=== PATIENT | female | born 1970 | race Caucasian/White ===

== ENCOUNTER → 2020-11-18 16:48 | Outpatient (CLI) | payer OTHER, SELFPAY | PROVIDERS: PCP Family Medicine; Referring Provider Family Medicine; Visit Provider Family Medicine | DX: Z20.822 Contact with and (suspected) exposure to COVID-19 (principal) | CPT/HCPCS: 87635; U0005; U0003 ==

== ENCOUNTER → 2020-11-24 | Outpatient (CLI) | payer OTHER, SELFPAY | END | disposition home or self-care (01) | PROVIDERS: PCP Family Medicine; Referring Provider Family Medicine; Visit Provider Family Medicine | DX: Z20.822 Contact with and (suspected) exposure to COVID-19 (principal) | CPT/HCPCS: 87635; U0005; U0003 ==

== ENCOUNTER 2021-03-14 08:11 | Outpatient (CLI) | payer OTHER, SELFPAY ==
[2021-03-14 10:08] LABS: Absolute Lymphocyte Count 1.27 X10^3/uL (0.83-4.51); Absolute Neutrophil Count 2.4 X10^3/uL (2.0-7.7); Basophil# 0.02 X10^3/uL; Basophil% 0.5 % (0-1); Eosinophil# 0.14 X10^3/uL; Eosinophils% 3.3 % (0-5); Hematocrit 40.4 % (37-47); Hemoglobin 13.4 g/dL (12.0-15.0); Lymphocyte # 1.27 X10^3/ul (0.83-4.51); Lymphocyte % 30.2 % (19-41); Mean Corp Hgb Conc 33.2 g/dL (32-36); Mean Corpuscular Hgb 31.2 pg (27.0-32.0); Mean Platelet Vol. 9.4 fl (6.2-12.0); Monocyte# 0.33 X10^3/uL; Monocyte% 7.8 % (0-10); NRBC Flagged by Analyzer 0 % (0-5); Neutrophil # 2.44 X10^3/uL (2.7-7.7); Platelet Count 343 K/mm3 (150-450); RBC Distribution Width CV 13.5 % (11.6-14.6); RBC Distribution Width SD 46.6 fl (35.1-43.9); White Blood Count 4.2 K/mm3 (4.4-11.0)
[2021-03-14 10:24] LABS: AST(SGOT) 20 U/L (15-37); Alanine Aminotransfer ALT/SGPT 38 U/L (13-56); Albumin, Serum 3.7 g/dL (3.2-5.0); Alkaline Phosphatase 94 U/L (45-117); Anion Gap 5 (5-15); BUN 9 mg/dL (7-18); BUN/Creat Ratio 9.3 RATIO (10-20); Calcium,Total 8.9 mg/dL (8.5-10.1); Chloride 107 mmol/L (98-107); Cholesterol 216 mg/dL (200); Creatinine, Serum 0.97 mg/dL (0.55-1.02); EST Glomerular Filtration Rate 65 mL/min (>60); Est Glom Filt Rate - Afr Amer 79 mL/min (>60); Globulin 3.8 g/dL (2.2-4.2); Glucose 111 mg/dL (74-106); High Density Lipoprotein 81 mg/dL; Protein, Total 7.5 g/dL (6.4-8.2); Sodium Level 139 mmol/L (136-145); Triglycerides 175 mg/dL; Very Low Density Lipoprotein 35 mg/dL (5-40)
== END 2021-03-14 23:59 | disposition home or self-care (01) ==
PROVIDERS: PCP Family Medicine; Referring Provider Nurse Practitioner Family; Visit Provider Nurse Practitioner Family
DX: R73.01 Impaired fasting glucose (principal); Z13.220 Encounter for screening for lipoid disorders
CPT/HCPCS: 36415; 80053; 80061; 85025

== ENCOUNTER 2021-03-31 11:14 | Outpatient (CLI) | payer OTHER, SELFPAY ==
[2021-03-31 16:00] LABS: Hemoglobin A1c 5.3 % (3.8-5.6)
[2021-04-06 13:56] LABS: HPV APTIMA, High Risk Negative (Negative)
[2021-04-06 14:29] LABS: HPV Reflexed? YES, CHARGE PATIENT
== END 2021-03-31 23:59 | disposition home or self-care (01) ==
LOC: MFPLAB 11:14
PROVIDERS: Nurse Practitioner Family; PCP Family Medicine; Referring Provider Family Medicine; Visit Provider Family Medicine
DX: Z12.4 Encounter for screening for malignant neoplasm of cervix (principal)
CPT/HCPCS: 36415; 83036; 87624; 88175; G0145

== ENCOUNTER 2023-02-14 09:15 | Emergency (ER) | payer OTHER, SELFPAY ==
[2023-02-14 09:16] VITALS: BP 137/92; PULSE 103; RESP 18; TEMP 36.3; O2SAT 99; BMI 24.3
--- NOTE | 2023-02-14 11:19 | EDS_ITS ---
HPI History of Present Illness Chief Complaint: Back Detail of Chief Complaint: Back pain Informant: patient Narrative Narrative: Patient presents to the emergency department complaint of low back pain. Patient states that she was in the kitchen 2 days ago mopping the floor when she slipped and was able to catch herself on a chair. She has had pain since that time. She describes pain radiating towards the right hip. She chronically has some numbness and tingling in the left leg. She has history of chronic back pain. She had a lumbar laminectomy and discectomy about 9 years ago in [place]. She is also had a cervical fusion. She denies weakness of extremities or change in bowel or bladder function. [facility] Medical History (Updated 02/14/23 @ 12:[address] Lilian Rajan, ) Chronic back pain Home Medications cyclobenzaprine 10 mg tablet 10 mg PO TID PRN Muscle Spasm #20 TABLETS 02/14/23 [Rx Last Taken Unknown] hydrocodone-acetaminophen 5-325mg 5mg-325mg 1 tab PO Q4H PRN PRN Pain 2 days #15 TABLETS 02/14/23 [Rx Last Taken Unknown] naproxen 500 mg tablet (Naprosyn) 500 mg PO BID PRN pain #20 tabs 02/14/23 [Rx Last Taken Unknown] venlafaxine 37.5 mg capsule,extended release 24 hr 37.5 mg PO DAILY 02/14/23 [History Last Taken Unknown] Allergy/AdvReac Type Severity Reaction Status Date / Time Iodinated Contrast Media Allergy Anaphylaxis Verified 02/14/23 11:08 Surgical History (Updated 02/14/23 @ 11:08 by Carol Schofield) H/O spinal fusion History of laminectomy Social History Smoking Status: Never smoker ROS ROS ED Review of Systems ROS Unobtainable: other Constitutional Constitutional ED: Reports lethargy; Denies chills, fever(s), sweats or weight loss Eyes Eyes: Denies blurry vision, change in vision or diplopia ENT ENT ED: Denies rhinorrhea or sore throat Cardiovascular Cardiovascular: Denies chest pain, orthopnea or racing heartbeat Respiratory/Chest Respiratory/Chest: Denies cough, dyspnea, dyspnea on exertion, orthopnea or sputum Gastrointestinal Gastrointestinal: Denies abdominal pain, diarrhea, nausea or vomiting Genitourinary Genitourinary ED: Denies dysuria, hematuria or urinary frequency Musculoskeletal Musculoskeletal: Reports back pain; Denies arthralgias, myalgias or neck pain Integumentary Denies abscess, Abrasions or rash Neurologic Neurologic: Denies headache(s) or weakness Psychiatric Psychiatric: Denies anxiety, depression or suicidal thoughts Endocrine Endocrinology: Denies polydipsia, polyphagia or polyuria Hematologic/Lymphatic Hematologic/Lymphatic: Denies easy bleeding, easy bruising or lymphadenopathy Allergic/Immunologic Allergic/Immunologic ED: Denies mouth swelling, tongue swelling or urticaria EXAM Physical Exam Const Vital Signs: 02/14/23 09:16 Temperature 97.4 F L Temperature Source Temporal Pulse Rate 103 H Respiratory Rate 18 Blood Pressure 137/92 H Blood Pressure Mean 107 Pulse Ox 99 Oxygen Delivery Method Room Air Positive well nourished and well developed General Appearance ED: well developed and NAD HEENT Reports TM's clear and moist mucous membranes normocephalic and atraumatic; Negative for trauma or tenderness Tympanic Membrane ED: Yes TM's clear Eyes PERRL and EOMs intact bilaterally General Eye ED: Negative for pale conjunctiva or scleral icterus Neck no lymphadenopathy, supple and no JVD General: Negative for tenderness Chest Wall inspection of chest normal and palpation of chest normal Chest: Negative for tenderness Resp normal respiratory effort and clear to auscultation bilaterally Effort and Inspection: Negative for respiratory distress or pain with movement Auscultation: Negative for rhonchi, wheezes or diminished lung sounds Cardio regular rate, regular rhythm, S1 normal heart sound, S2 normal heart sound and no murmurs Peripheral Pulses: pulses 2+ throughout GI normal to inspection, nondistended, normoactive bowel sounds, soft to palpation, non-tender, non-distended and no masses Back/Spine no CVA tenderness Back/Spine Narrative: Tenderness diffusely over the lumbar spine. She also has tenderness over the right and left lumbar paraspinal musculature. She has negative straight leg raises. Deep tendon reflexes are plus 2 out of 4 bilaterally at the patella and Achilles. Patient has normal L5 extension bilaterally. Patient has normal sensation to light touch. Extremity normal to inspection General Extremety ED: Negative for edema General Extremity: Negative for edema Neuro oriented x3, CN's II-XII intact bilaterally, no sensory deficits noted and gait normal Sensorium / Orientation: awake, alert, oriented to person, oriented to place and oriented to time Motor Exam: strength 5/5 throughout and strength abnormal Psych mental status grossly normal Skin no rashes or lesions noted and no wounds MDM MDM MDM Narrative Medical decision making narrative: Patient with acute on chronic back pain. She slipped in the kitchen 2 days ago and thinks she injured her back. She has no red flag symptoms of cauda equina. Did obtain some plain x-rays 3 views of the lumbar spine which showed degenerative changes and disc space narrowing at L4-5. No fractures noted. No lytic lesions noted. Patient was medicated with Dilaudid as well as Toradol and Norflex. She had some pain improvement with that. Will refer to back specialist and will write a prescription for Naprosyn as well as Flexeril and Timpson for pain. Advised to return if change in bowel or bladder function or weakness to the extremities or saddle anesthesia or if condition should worsen anyway. I do not feel any further imaging emergent such as MRI is indicated. Radiography Diagnostic Testing: Clinical Impression(s) from Imaging Studies Lumbar Spine X-Ray 02/14/23 11:55 IMPRESSION: Degenerative changes of the lower lumbar spine as described above. Electronically Signed: Albert Higuera MD at 12:06 EST , Three-view x-rays of lumbar spine obtained interpreted by myself as no evidence of fracture or dislocation. Radiology noted degenerative changes. Discharge Plan Triage Chief Complaint: Back ED Provider: Lilian Rajan Dx/Rx/DC Orders Clinical Impression: Back pain Instructions: ED Back Pain (Acute or Chronic) Prescriptions: New cyclobenzaprine [cyclobenzaprine] 10 mg tablet 10 mg PO TID PRN (Reason: Muscle Spasm) Qty: 20 0RF hydrocodone-acetaminophen [hydrocodone-acetaminophen] 5-325 mg tablet 1 tab PO Q4H PRN PRN (Reason: Pain) 2 Days Qty: 15 0RF naproxen [Naprosyn] 500 mg tablet 500 mg PO BID PRN (Reason: pain) Qty: 20 0RF No Action venlafaxine 37.5 mg capsule,extended release 24hr 37.5 mg PO DAILY Patient Comments: TAKE 1 CAPSULE BY MOUTH EVERY DAY Primary Care Provider: Thiago Mcduffie: Johnny Morgan MD [Med Staff - Active Staff] - 3-5 Days Neftali Gautam DO [Med Staff - Active Staff] - 3-5 Days Danish Chung DO [Med Staff - Active Staff] - 3-5 Days Raj Reina MD [Med Staff - Active Staff] - Disposition Disposition: Home, Self Care Discharge Date/Time: 02/14/23 12:26
--- NOTE | 2023-02-14 11:55 | RAD_ITS ---
INDICATION: back pain EXAMINATION/TECHNIQUE: X-RAY - XR Spine Lumbar 2 or 3 Views COMPARISON: No relevant prior comparison study available FINDINGS: VERTEBRAE: Preserved vertebral body height. No fracture. Mild grade 1 anterolisthesis of L3 over L4 and L4 over L5. Preservation of the normal lumbar lordosis. Mild dextroscoliosis. DISCS: Narrowing of L4-L5 disc space. Endplate spondylosis at multiple levels. INCLUDED ABDOMEN: Included bowel gas pattern is non-obstructive. RAD/Lumbar Spine 2 or 3 Views IMPRESSION: Degenerative changes of the lower lumbar spine as described above. Electronically Signed: Albert Higuera MD at 12:06 EST ,
--- OUTSIDE RECORDS SUMMARY | 2023-02-14 12:00 | XMS RPT_ITS | CCD ---
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 Name Role Phone Holly Calderon Unavailable Unavailable Adonis Martínez Unavailable Unavailable Adonis Martínez Primary Care Provider IVANA, DR DEB James Attending Unavaila ble IVANA, DR DEB James Primary Care Unavaila ble IVANA, DR DEB James Admitting Unavaila ble IVANA, DR DEB James Attending Unavaila ble IVANA, DR DEB James Primary Care Unavaila ble IVANA, DR DEB James Admitting Unavaila ble SOZEN, SALINAS Attending Unavailable YONNY CARRILLO, DR ROBBI Botello Consulting Unavailab le YONNY CARRILLO, ~[phone] ROBBI Botello Admitting Unavailable YONNY CARRILLO, ~[phone] ROBBI Botello Attending Unavailable NONE, NONE Primary Care Unavailable YONNY CARRILLO, DR ROBBI Botello Consulting Unavailab le NONE, NONE Consulting Unavailable NONE, NONE Consulting Unavailable Allergies Allergy Classification Reported Allergen(s) Allergy Type Date of Onset Reaction(s) Facility (2 sources) Codeine; Translations: [CODEINE] Drug Allergy 08-10-2014 Vomiting [facility] (2 sources) Iodine; Translations: [IODINE] Drug Allergy 10-19-2010 Anaphylaxis [facility] (2 sources) Penicillins; Translations: [PENICILLINS] Drug Allergy 10-19-2010 Rash [facility] (2 sources) Vancomycin; Translations: [VANCOMYCIN] Drug Allergy 11-18-2014 Rash [facility] Problems Active Problems Problem Classification Problem Date Documented Date Episodic/Chronic Administrative/socia l admission (3 sources) Encounter for examination for insurance purposes; Translations: [ENCOUNTER EXAM INSURANCE PURPOSES] Onset: 11-05-2022 Episodic Esophageal disorders (1 source) Gastroesophageal reflux disease; Translations: [GERD (gastroesophageal reflux disease)] Onset: 10-20-2014 10-20-2014 Chronic Unclassified (1 source) SUMMARY Onset: 10-20-2014 10-20-2014 Unclassified (1 source) Patient encounter status; Translations: [DVT prophylaxis] Onset: 10-20-2014 10-20-2014 Past or Other Problems Problem Classification Problem Date Documented Da te Episodic/Chronic Other ear and sense organ disorders (1 source) Otalgia; Translations: [Otalgia] Onset: 06-24-2012 06-24-2012 Episodic Otitis media and related conditions (1 source) Acute otitis media; Translations: [Acute otitis media] Onset: 06-24-2012 06-24-2012 Episodic Spondylosis; intervertebral disc disorders; other back problems (1 source) Backache; Translations: [Back pain] Onset: 10-20-2014 10-20-2014 Episodic Results Test Name Value Interpretation Reference Range Facil ity Encounters Encounter Date Encounter Type Care Provider Facility Start: 11-05-2022 End: 11-06-[address] ROBBI BLANCAS DO Facility:[facility] Start: 05-18-2022 End: 05-18-2022 ambulatory KAMILLE FRITZ Facility:[facility] Start: 05-27-2020 End: 05-27-[address] DEB HEATH Kishan [facility] Start: 05-04-2020 End: 05-04-[address] DEB HEATH Kishan [facility] Start: 12-21-2016 Ambulatory Holly Calderon Fac ility:[id number] Start: 12-08-2005 End: 12-08-2005 Patient encounter procedure Yara Javier Work Phone: [facility] Start: 12-08-2005 Results Only Yara vincent Work Phone: [facility] Procedures Date Procedure Procedure Detail Performing Clinician Start: 12-03-2014 Mammography Yara ma Start: 12-08-2005 CONVERTED SURGICAL PATHOLOGY Yara Javier Work Phone: Plan of Treatment Date Care Activity Detail Author Start: 11-20-2022 Urine microalbumin profile DTAP,TDAP ,TD (2 - Td) [facility] Start: 10-07-2019 Influenza vaccination INFLUENZA (#1) [facility] Start: 11-23-2017 DIABETES SCREEN DIABETES SCREEN [facility] Start: 02-03-2017 LIPID SCREEN LIPID SCREEN [facility] Start: 12-04-2015 Mammography MAMMOGRAM [facility] Start: 10-20-2015 HPV TESTING HPV TESTING [facility] Start: 10-20-2015 PAP TESTING PAP TESTING [facility] Payers Date Payer Category Payer Unknown [id number] 1970 Unknown [id number] 1970 Unknown [id number] 1957 Self-pay Private Health Insurance [id number] Unknown [id number] Social History Date Type Detail Facility Tobacco smoking status NHIS Unknown if ev er smoked [facility] Sex Assigned At Not on file [facility] Progress note 05-18-2022 Note Date & Type Note Facility 05-18-2022 Note HNO ID: [id number] Author: Kamille Fritz MD Service: ? Author Type: Physician Type: Progress Notes Filed: 05/19/2022 10:29 AM Note Text: Alesia Shields is a 52 year old female who presents for annual visit. HPI: Pt has been seeing her periods every 3-4 months. Denies hot flushes, night sweats, admits to vaginal dryness, but manageable for the time being. C/O vaginal bleeding after intercourse. Has hx of + HPV. has hx of + genital herpes. Due for pap smear and mammogram. 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 Delatorre L/[facility] (INCOMPLETE AB), ANY TRIMESTER 2 for SAB ORTHOPEDICS SURGERY HX 08/2014 lumbar, diskectomy PICC LINE INSERT/CONSULT 10/23/2014 SINUS SURGERY PROC UNLISTED 2004 FAMILY HISTORY Problem Relation Age of Onset Heart Paternal Grandfather Hypertension Daughter Ischemic Heart Disease Son Diabetes Father Hypertension Father Hypertension Mother Social History Tobacco Use Smoking status: Never Smokeless tobacco: Never Substance Use Topics Alcohol use: No Drug use: No Current Outpatient Medications Medication Sig venlafaxine ER (EFFEXOR XR) 37.5 mg 24 hr capsule Take 37.5 mg by mouth once daily. clindamycin (CLEOCIN) 300 mg capsule Take 1 capsule by mouth three times daily. ciprofloxacin HCl (CIPRO) 500 mg tablet Take 1 tablet by mouth twice daily. multivitamin tablet Take 1 tablet by mouth once daily. oxyCODONE 10 mg tab PLEASE take as needed by mouth for pain only: 6 times daily for 5 days 4 times daily for 5 days 3 times daily for 5 days 2 times daily for 5 days Once daily for 5 days Then stop, OR seek advice of pain management physician or PCP if pain persists for proper pain management services. magnesium hydroxide (MOM) 400 mg/5 mL suspension Take 30 mL by mouth twice daily as needed for Constipation. docusate sodium (COLACE) 100 mg capsule Take 1 capsule by mouth twice daily. ondansetron (ZOFRAN, HYDROCHLORIDE,) 4 mg tablet Take 1 tablet by mouth every 8 hours as needed for Nausea/Vomiting. FOR NAUSEA omeprazole (PRILOSEC) 20 mg capsule Take 20 mg by mouth once daily. pregabalin (LYRICA) 150 mg capsule Take 150 mg by mouth twice daily. No current facility-administered medications for this visit. Allergies As of Date: 05/18/2022 Allergen Noted Reaction CONTRAST DYE [IODINE] 10/19/2010 Anaphylaxis CODEINE 08/10/2014 Vomiting PENICILLINS 10/19/2010 Rash VANCOMYCIN 11/18/2014 Rash Fully Assessed 05/18/2022 REVIEW OF SYSTEMS Abdomen: No bloating, early satiety, indigestion, or increased flatulence. No abdominal pain, nausea, vomiting, diarrhea, or constipation. Bladder: No dysuria, gross hematuria, urinary frequency, urinary urgency, or incontinence. Breast: No breast lumps, nipple d/c, overlying skin changes, redness or skin retraction. Expanded ROS: N/A Allergies and current medication updated:Yes EXAM: BP 110/80 Wt 152 lb (68.9kg) LMP 05/17/2022 GENERAL: pleasant, female in no apparent distress HEENT: Normocephalic, atraumatic, mucus membranes moist, and no lesions NECK: Supple, full range of motion, no adenopathy, and thyroid normal DERMATOLOGY: Normal, without lesions, non-icteric, and non-hirsute CHEST: Normal inspiratory effort ABDOMEN: soft, non-tender, and no masses PELVIC: external genitalia normal, normal Bartholin's glands, urethra, [place]'s glands, no vulvar lesions, no cervical lesions, good vaginal support, physiologic discharge present, normal appearing perineal body and perianal region BIMANUAL: uterus normal size, shape and consistency, no adnexal masses, and non-tender NEURO: alert and oriented x3,exam grossly non-focal EXTREMITIES: normal ASSESSMENT AND PLAN: Encounter Diagnosis ICD-10-CM 1. Breast screening Z12.39 FAISAL SCREENING W OSCAR 2. Cervical cancer screening Z12.4 PAP TEST 1- pap smear 2- mammogram 3- Vagifem for vaginal dryness if it gets worse 4- post-coital bleeding: Will watch for the time being, since cervix does not look inflamed or friable. We did discuss the possibility of cryotherapy of cervix, if bleeding after intercourse persists or gets worse in amount. I have spent 45 minutes with the patient during history taking, exam, review of chart, documentation in the chart, education, counselling and medical decision making. Stacia (more content not included)... [facility] Summary Purpose Family History No Family History Records FoundNo Family History Records FoundNo Family History Records FoundNo Family History Records FoundNo Family History Records Found Advance Directives No Advanced Directives Records FoundNo Advanced Directives Records FoundNo Advanced Directives Records FoundNo Advanced Directives Records FoundNo Advanced Directives Records Found History of Past Illness Problem Noted Date Resolved Date SUPERVIS OTHER NORMAL PREG 07/04/201212/30 Additional Source Comments INFORMATION SOURCE (unrecogn ized section and content) DATE CREATED AUTHOR AUTHOR'S ORGANIZ ATION 02/24/2020 [facility] DATE CREATED AUTHOR AUTHOR'S ORGANIZ ATION 06/03/2020 [facility] DATE CREATED AUTHOR AUTHOR'S ORGANIZ ATION 05/22/2022 [facility] DATE CREATED AUTHOR AUTHOR'S ORGANIZ ATION 11/16/2022 [facility] Source Comments (unrecognize d section and content) In the event this informatio n is protected by the Federal Confidentiality of Alcohol and Drug Abuse Patient Records regulations: The Federal rules restrict any use of the information to criminally investigate or prosecute any alcohol or drug abuse patient.[facility] FOR RECORDS PERTAINING TO PATIENTS WHO ARE OR HAVE BEEN ENROLLED IN A CHEMICAL DEPENDENCY/SUBSTANCEABUSE PROGRAM, SOME INFORMATION MAY BE OMITTED. This clinical summary was aggregated from multiple sources. Caution should be exercised in using it in the provision of clinical care. This summary normalizes information from multiple sources, and as a consequence, information in this document may materially change the coding, format and clinical context of patient data. In addition, data may be omitted in some cases. CLINICAL DECISIONS SHOULD BE BASED ON THE PRIMARY CLINICAL RECORDS. [employer] [facility]. provides no warranty or guarantee of the accuracy or completeness of information in this document.
[2023-02-14] MEDS: HYDROmorphone 1 MG/ML Syringe IM (12:02)
[2023-02-14] MEDS: Ketorolac 30 MG/ML Syringe IM (12:03)
[2023-02-14] MEDS: Orphenadrine 60 MG/2 ML Ampul IM (12:03)
== END 2023-02-14 12:26 | disposition home or self-care (01) ==
PROVIDERS: Emergency Provider Emergency Medicine; PCP Family Medicine; Visit Provider Emergency Medicine
DX: M54.9 Dorsalgia, unspecified (principal); M51.36 Other intervertebral disc degeneration, lumbar region; G89.29 Other chronic pain
CPT/HCPCS: 72100; 99283

== ENCOUNTER → 2024-11-18 | Outpatient (CLI) | payer OTHER, SELFPAY ==
--- NOTE | 2024-11-18 08:52 | RAD_ITS ---
PROCEDURE: CHEST PA AND LATERAL; RIBS BILAT 3V NO CXR 11/18/2024 REASON FOR EXAM: RIB PAIN; INJURY OF RIB TECHNIQUE: Procedure Code: RADCXR; [id number] Modality: DX Procedure: CHEST PA AND LATERAL; RIBS BILAT 3V NO CXR AP and lateral chest radiographs including bilateral views of both ribs. COMPARISON: None FINDINGS: Hardware: Cervical fusion hardware present. Heart: The heart size is normal. Mediastinum: The mediastinal contour is unremarkable. Lungs: The lungs are clear. Nonspecific moderate left lung base elevation. Bones: No acute displaced rib fracture is identified. RAD/Ribs Bilat 3V No CXR IMPRESSION: 1. No acute cardiopulmonary process. 2. No radiographic evidence of acute displaced rib fracture. If focal pain pe rsists consider follow-up with CT chest without contrast. Reading [facility]
--- NOTE | 2024-11-18 08:52 | RAD_ITS ---
PROCEDURE: CHEST PA AND LATERAL; RIBS BILAT 3V NO CXR 11/18/2024 REASON FOR EXAM: RIB PAIN; INJURY OF RIB TECHNIQUE: Procedure Code: RADCXR; [id number] Modality: DX Procedure: CHEST PA AND LATERAL; RIBS BILAT 3V NO CXR AP and lateral chest radiographs including bilateral views of both ribs. COMPARISON: None FINDINGS: Hardware: Cervical fusion hardware present. Heart: The heart size is normal. Mediastinum: The mediastinal contour is unremarkable. Lungs: The lungs are clear. Nonspecific moderate left lung base elevation. Bones: No acute displaced rib fracture is identified. RAD/Ribs Bilat 3V No CXR IMPRESSION: 1. No acute cardiopulmonary process. 2. No radiographic evidence of acute displaced rib fracture. If focal pain pe rsists consider follow-up with CT chest without contrast. Reading Location[facility]
--- NOTE | 2024-11-18 09:00 | RAD_ITS ---
PROCEDURE: CHEST PA AND LATERAL; RIBS BILAT 3V NO CXR 11/18/2024 REASON FOR EXAM: RIB PAIN; INJURY OF RIB TECHNIQUE: Procedure Code: RADCXR; [id number] Modality: DX Procedure: CHEST PA AND LATERAL; RIBS BILAT 3V NO CXR AP and lateral chest radiographs including bilateral views of both ribs. COMPARISON: None FINDINGS: Hardware: Cervical fusion hardware present. Heart: The heart size is normal. Mediastinum: The mediastinal contour is unremarkable. Lungs: The lungs are clear. Nonspecific moderate left lung base elevation. Bones: No acute displaced rib fracture is identified. RAD/Chest PA and Lateral IMPRESSION: 1. No acute cardiopulmonary process. 2. No radiographic evidence of acute displaced rib fracture. If focal pain pe rsists consider follow-up with CT chest without contrast. Reading Location[facility]
--- NOTE | 2024-11-18 09:00 | RAD_ITS ---
PROCEDURE: CHEST PA AND LATERAL; RIBS BILAT 3V NO CXR 11/18/2024 REASON FOR EXAM: RIB PAIN; INJURY OF RIB TECHNIQUE: Procedure Code: RADCXR; [id number] Modality: DX Procedure: CHEST PA AND LATERAL; RIBS BILAT 3V NO CXR AP and lateral chest radiographs including bilateral views of both ribs. COMPARISON: None FINDINGS: Hardware: Cervical fusion hardware present. Heart: The heart size is normal. Mediastinum: The mediastinal contour is unremarkable. Lungs: The lungs are clear. Nonspecific moderate left lung base elevation. Bones: No acute displaced rib fracture is identified. RAD/Chest PA and Lateral IMPRESSION: 1. No acute cardiopulmonary process. 2. No radiographic evidence of acute displaced rib fracture. If focal pain pe rsists consider follow-up with CT chest without contrast. Reading Location[facility]
== END | disposition home or self-care (01) ==
LOC: MTRAD 08:51
PROVIDERS: PCP Family Medicine; Referring Provider Family Medicine; Visit Provider Family Medicine
DX: S29.9XXA Unspecified injury of thorax, initial encounter (principal)
CPT/HCPCS: 71046; 71110

== ENCOUNTER → 2024-11-21 | Outpatient (CLI) | payer OTHER, SELFPAY ==
[2024-11-21 10:16] LABS: Hematocrit 39.0 % (37-47); Hemoglobin 12.7 g/dL (12.0-15.0); Mean Corp Hgb Conc 32.6 g/dL (32-36); Mean Corpuscular Volume 95.6 fL (81-99); Mean Platelet Vol. 9.2 fl (6.2-12.0); Platelet Count 364 K/mm3 (150-450); RBC Distribution Width CV 13.2 % (11.6-14.6); RBC Distribution Width SD 46.4 fl (35.1-43.9); Red Blood Count 4.08 M/mm3 (4.2-5.4); White Blood Count 4.7 K/mm3 (4.4-11.0)
[2024-11-21 10:45] LABS: AST(SGOT) 24 U/L (<=31); Alanine Aminotransfer ALT/SGPT 33 U/L (<=34); Albumin, Serum 4.5 g/dL (3.5-5.0); Alkaline Phosphatase 85 U/L (35-104); Anion Gap 9 (5-15); BUN 10 mg/dL (4-19); BUN/Creat Ratio 13.2 RATIO (10-20); Calcium,Total 9.5 mg/dL (7.6-11.0); Carbon Dioxide 27.3 mmol/L (21.0-32.0); Chloride 101 mmol/L (98-108); Cholesterol 195 mg/dL (<=200); Globulin 2.8 g/dL (2.2-4.2); Glucose 99 mg/dL (70-99); Low Density Lipoprotein Calc. 79 mg/dL; Potassium 4.2 mmol/L (3.3-5.1); Triglycerides 68 mg/dL; Very Low Density Lipoprotein 14 mg/dL (5-40); cholesterol:hdl ratio screen 1.91
== END | disposition home or self-care (01) ==
LOC: MFPLAB 09:01
PROVIDERS: PCP Family Medicine; Visit Provider Family Medicine
DX: Z13.228 Encounter for screening for other metabolic disorders (principal); R73.01 Impaired fasting glucose; R74.01 Elevation of levels of liver transaminase levels; E78.5 Hyperlipidemia, unspecified; Z13.29 Encounter for screening for other suspected endocrine disorder
CPT/HCPCS: 36415; 80053; 80061; 83036; 84443; 85027

== ENCOUNTER → 2025-01-05 | Outpatient (CLI) | payer OTHER, SELFPAY ==
--- OUTSIDE RECORDS SUMMARY | 2025-01-05 19:57 | XMS RPT_ITS | CCD ---
Author Organization [facility] Inform ion Partnership [facility] Care Team Providers Care Supervisor [employer] Name Role Phone Erika Calderon Unavailable Unavailable Adonis Martínez Unavailable Unavailable Adonis Martínez Primary Care Provider IVANA, DR LADARIUS James Attending Unavaila ble IVANA, DR LADARIUS James Primary Care Unavaila ble IVANA, DR LADARIUS James Admitting Unavaila ble IVANA, DR LADARIUS James Attending Unavaila ble IVANA, DR LADARIUS James Primary Care Unavaila ble IVANA, DR LADARIUS James Admitting Unavaila ble Adonis Martínez MD Primary Care Provider SUNNY BALLESTEROS Referring Unavailable ADONIS MARTÍNEZ Primary Care Unavailable SUNNY BALLESTEROS Referring Unavailable ADONIS MARTÍNEZ Primary Care Unavailable SUNNY BALLESTEROS Attending Unavailable ADONIS MARTÍNEZ Primary Care Unavailable SUNNY BALLESTEROS Attending Unavailable ADONIS MARTÍNEZ Primary Care Unavailable Unavailable Primary Care Provider UnavailALISSA Roberto Attending Unavailable NONE, NONE Primary Care Unavailable DR SHANNAN THOMPSON DO Consulting Unavailab kt THOMPSON DO, ~[phone] SHANNAN Botello Attending Unavailable YONNY CARRILLO DR~[phone] SHANNAN Botello Admitting Unavailable DR SHANNAN THOMPSON DO Consulting Unavailab le NONE, NONE Consulting Unavailable NURSEREFERRAL, NURSEREFERRAL Consulting Ann vailable NONE, NONE Primary Care Unavailable PAULA DENG, ~[phone] TROY Harrison Attending Unavailable PAULA DENG, ~[phone] TROY Harrison Admitting Unavailable ADELA FUCHS CRNA Consulting Unavailab le ADELA FUCHS CRNA Consulting Unavailab kt ALEJANDRE MD, ANTON Fitzpatrick Consulting Unavailable ANTON ALEJANDRE MD Consulting Unavailable PAULA DENG, DR TROY Harrison Consulting Unavaila ble PAULA DENG, DR TROY Harrison Consulting Unavaila ble NONE, NONE Consulting Unavailable NONE, NONE Consulting Unavailable YONNY CARRILLO, ~[phone] SHANNAN Botello Attending Unavailable YONNY CARRILLO, ~[phone] SHANNAN Botello Admitting Unavailable YONNY CARRILLO, DR SHANNAN Botello Consulting Unavailab le NONE, NONE Primary Care Unavailable YONNY CARRILLO, DR SHANNAN Botello Consulting Unavailab le NONE, NONE Consulting Unavailable NONE, NONE Consulting Unavailable SilverabrSachin connell Attending Unavailable Froy, Chalon Referring Unavailable Froy, Chalon Primary Care Unavailable Froy, Chalon Primary Care Unavailable Sarahi Rudd Attending Unavailable Calabretta, Sachin Attending Unavailable Froy, Chalon Referring Unavailable Froy, Chalon Primary Care Unavailable Fifi Aguirre Attending Unavailable Froy, Chalon Referring Unavailable Froy, Chalon Primary Care Unavailable Froy, Chalon Primary Care Unavailable Calabretta, Sachin Attending Unavailable Calabretta, Sachin Attending Unavailable Froy, Chalon Primary Care Unavailable Froy, Chalon Attending Unavailable Froy, Chalon Referring Unavailable Froy, Chalon Primary Care Unavailable Froy, Chalon Attending Unavailable Froy, Chalon Primary Care Unavailable Allergies Allergy Classification Reported Allergen(s) Allergy Type Date of Onset Reaction(s) Facility (3 sources) Codeine; Translations: [CODEINE] Drug Allergy 5 Vomiting [facility] (3 sources) Iodine; Translations: [IODINE] Drug Allergy 1 Anaphylaxis [facility] (3 sources) Penicillins; Translations: [PENICILLINS] Drug Allergy 1 [facility] (3 sources) Vancomycin; Translations: [VANCOMYCIN] Drug Allergy 5 [facility] (7 sources) Iodinated Contrast Media; Translations: [IODINATED CONTRAST MEDIA] Drug Allergy 5 Anaphylaxis, Other [facility] (1 source) Iodine (And Iodine Containting Drugs) Drug allergy (disorder) [facility] (1 source) Iodinated Contrast Media Drug allergy (disorder) 5 [facility] Medications Current Medications Medication Drug Class(es) Dates Sig (Normalized) Sig (Original) ciprofloxacin 500 mg oral tablet (1 source) Quinolone Antimicrobial Start: 12-02-2014 take 1 tablet by mouth twice daily ciprofloxacin HCl (CIPRO) 500 mg tablet Take 1 tablet by mouth twice daily. 60 tablet 5 12/02/2014 Active clindamycin 300 mg oral capsule (1 source) Lincosamide Antibacterial Start: 12-02-2014 take 1 capsule by mouth three times daily clindamycin (CLEOCIN) 300 mg capsule Take 1 capsule by mouth three times daily. 90 capsule 5 12/02/2014 Active docusate sodium 100 mg oral capsule (1 source) Start: 10-24-2014 take 1 capsule by mouth twice daily docusate sodium (COLACE) 100 mg capsule Take 1 capsule by mouth twice daily. 60 capsule 3 10/24/2014 Active magnesium hydroxide 80 mg/ml oral suspension (1 source) Start: 10-24-2014 take 30 mL by mouth every twelve hours as needed magnesium hydroxide (MOM) 400 mg/5 mL suspension Take 30 mL by mouth twice daily as needed for Constipation. 100 mL 3 10/24/2014 Active multivitamin tablet (1 source) Start: 11-30-2014 take 1 tablet by mouth once daily multivitamin tablet Take 1 tablet by mouth once daily. 0 11/30/2014 Active omeprazole 20 mg delayed release oral capsule (1 source) Proton Pump Inhibitor take 1 capsule by mouth once daily omeprazole (PRILOSEC) 20 mg capsule Take 20 mg by mouth once daily. Active ondansetron 4 mg oral tablet (1 source) Serotonin-3 Receptor Antagonist Start: 10-24-2014 take 1 tablet by mouth every eight hours as needed ondansetron (ZOFRAN, HYDROCHLORIDE,) 4 mg tablet Take 1 tablet by mouth every 8 hours as needed for Nausea/Vomiting. FOR NAUSEA 30 tablet 0 10/24/2014 Active oxyCODONE hydrochloride 10 mg oral tablet (1 source) Opioid Agonist Start: 10-24-2014 oxyCODONE 10 mg tab PLEASE take as needed by mouth for pain only: 6 times daily for 5 days 4 times daily for 5 days 3 times daily for 5 days 2 times daily for 5 days Once daily for 5 days Then stop, OR seek advice of pain management physician or PCP if pain persists for proper pain management services. 90 tablet 0 10/24/2014 Active pregabalin 150 mg oral capsule (1 source) take 1 capsule by mouth twice daily pregabalin (LYRICA) 150 mg capsule Take 150 mg by mouth twice daily. Active 24 hr venlafaxine 37.5 mg extended release oral capsule (6 sources) Serotonin and Norepinephrine Reuptake Inhibitor Start: 05-03-2022 take 1 capsule by mouth once daily venlafaxine ER (EFFEXOR XR) 37.5 mg 24 hr capsule Take 37.5 mg by mouth once daily. 05/03/2022 Active Problems Active Problems Problem Classification Problem Date Documented Date Episodic/Chronic Administrative/socia l admission (3 sources) Encounter for examination for insurance purposes; Translations: [ENCOUNTER EXAM INSURANCE PURPOSES] Onset: 10-19-2024 Episodic Esophageal disorders (3 sources) Gastroesophageal reflux disease; Translations: [Gastro-esophageal reflux disease without esophagitis] Onset: 10-20-2014 10-20-2014 Chronic Gastritis and duodenitis (1 source) Unspecified chronic gastritis without bleeding; Translations: [UNS CHRONIC GASTRITIS W/O BLEEDING] Onset: 08-20-2024 Chronic Other and unspecified benign neoplasm (1 source) History of polyp of colon; Translations: [Personal history of colonic polyps] 10-22-2023 Episodic Other injuries and conditions due to external causes (1 source) Unspecified injury of thorax, initial encounter; Translations: [Unspecified injury of thorax, initial encounter] Onset: 12-04-2024 Episodic Other screening for suspected conditions (not mental disorders or infectious disease) (6 sources) Patient encounter status; Translations: [Encounter for screening for malignant neoplasm of colon] Onset: 05-14-2024 10-22-2023 Episodic Unclassified (2 sources) SUMMARY Onset: 10-20-2014 10-20-2014 Unclassified (1 source) Patient encounter status; Translations: [DVT prophylaxis] Onset: 10-20-2014 10-20-2014 Unclassified (1 source) Drug therapy finding; Translations: [DVT prophylaxis] Onset: 10-20-2014 01-31-2021 Unclassified (1 source) ESOPHAGITIS UNSPEC WITHOUT BLEEDING; Translations: [ESOPHAGITIS UNSPEC WITHOUT BLEEDING] Onset: 08-20-2024 Past or Other Problems Problem Classification Problem Date Documented Da te Episodic/Chronic Other ear and sense organ disorders (1 source) Otalgia; Translations: [Otalgia] Onset: 06-24-2012 06-24-2012 Episodic Other ear and sense organ disorders (1 source) Pain of ear structure; Translations: [Otalgia, unspecified ear] Onset: 06-24-2012 06-24-2012 Episodic Other and delivery including normal (1 source) Normal ; Translations: [Encounter for supervision of other normal , unspecified trimester] Onset: 07-04-2012 Resolved: 12-30-2012 12-30-2012 Episodic Otitis media and related conditions (2 sources) Acute otitis media; Translations: [Otitis media, unspecified, unspecified ear] Onset: 06-24-2012 06-24-2012 Episodic Spondylosis; intervertebral disc disorders; other back problems (11 sources) Backache; Translations: [Neurogenic claudication] Onset: 10-20-2014 10-20-2014 Episodic Unclassified (5 sources) Onset: 04-20-2023 04-20-2023 Results Test Name Value Interpretation Reference Range Facility CBC-Complete Blood Cnt No Di ffon 11-21-2024 Erythrocyte distribution width (RBC) [Ratio] 13.2 % Normal 11.6-14.6 [facility] Comment on above: Performed By: #### L 500.4100, L501.9985, L100.0500, L501.9520, L500.4050 #### [facility] [address] [place], [address] Hematocrit (Bld) [Volume fraction] 39.0 % Normal 37-47 [facility] Comment on above: Performed By: #### L 500.4100, L501.9985, L100.0500, L501.9520, L500.4050 #### [facility] [address] [place], [address] Hemoglobin (Bld) [Mass/Vol] 12.7 g/dL Normal 12.0-15.0 [facility] Comment on above: Performed By: #### L 500.4100, L501.9985, L100.0500, L501.9520, L500.4050 #### [facility] [address] [place], [address] MCH (RBC) [Entitic mass] 31.1 pg Normal 27.0-32.0 [facility] Comment on above: Performed By: #### L 500.4100, L501.9985, L100.0500, L501.9520, L500.4050 #### [facility] [address] [place], [address] MCHC (RBC) [Mass/Vol] 32.6 g/dL Normal 32-36 [facility] Comment on above: Performed By: #### L 500.4100, L501.9985, L100.0500, L501.9520, L500.4050 #### [facility] [address] [place], [address] MCV (RBC) [Entitic vol] 95.6 fL Normal 81-99 [facility] Comment on above: Performed By: #### L 500.4100, L501.9985, L100.0500, L501.9520, L500.4050 #### [facility] [address] [place], [address] Platelet mean volume (Bld) [Entitic vol] 9.2 fL Normal 6.2-12.0 [facility] Comment on above: Performed By: #### L 500.4100, L501.9985, L100.0500, L501.9520, L500.4050 #### [facility] [address] [place], [address] Platelets (Bld) [#/Vol] 364 10*3/uL Normal 150-450 [facility] Comment on above: Performed By: #### L 500.4100, L501.9985, L100.0500, L501.9520, L500.4050 #### [facility] [address] [place], [address] RBC (Bld) [#/Vol] 4.08 10*6/uL Low 4.2-5.4 [facility] Comment on above: Performed By: #### L 500.4100, L501.9985, L100.0500, L501.9520, L500.4050 #### [facility] [address] [place], [address] RDW SD 46.4 fl High 35.1-43.9 [facility] Comment on above: Performed By: #### L 500.4100, L501.9985, L100.0500, L501.9520, L500.4050 #### [facility] [address] [place], [address] WBC (Bld) [#/Vol] 4.7 10*3/uL Normal 4.4-11.0 [facility] Comment on above: Performed By: #### L 500.4100, L501.9985, L100.0500, L501.9520, L500.4050 #### [facility] [address] [place], [address] Comprehensive Metabolic Prof [facility] 11-21-2024 Albumin [Mass/Vol] 4.5 g/dL Normal 3.5-5.0 [facility] Comment on above: Performed By: #### L 500.4100, L501.9985, L100.0500, L501.9520, L500.4050 #### [facility] [address] [place], [address] Albumin/Globulin [Mass ratio] 1.6 {ratio} Normal 0.9-2.4 [facility] Comment on above: Performed By: #### L 500.4100, L501.9985, L100.0500, L501.9520, L500.4050 #### [facility] [address] [place], [address] ALK PHOS 85 U/L Normal 35-104 [facility] Comment on above: Performed By: #### L 500.4100, L501.9985, L100.0500, L501.9520, L500.4050 #### [facility] [address] [place], [address] ALT [Catalytic activity/Vol] 33 U/L Normal <=34 [facility] Comment on above: Performed By: #### L 500.4100, L501.9985, L100.0500, L501.9520, L500.4050 #### [facility] [address] [place], [address] AST [Catalytic activity/Vol] 24 U/L Normal <=31 [facility] Comment on above: Performed By: #### L 500.4100, L501.9985, L100.0500, L501.9520, L500.4050 #### [facility] [address] [place], [address] Bilirubin [Mass/Vol] 0.42 mg/dL Normal 0.00-1.30 [facility] Comment on above: Performed By: #### L 500.4100, L501.9985, L100.0500, L501.9520, L500.4050 #### [facility] [address] [place], [address] BUN/CRE 13.2 RATIO Normal 10-20 [facility] Comment on above: Performed By: #### L 500.4100, L501.9985, L100.0500, L501.9520, L500.4050 #### [facility] [address] [place], [address] Calcium [Mass/Vol] 9.5 mg/dL Normal 7.6-11.0 [facility] Comment on above: Performed By: #### L 500.4100, L501.9985, L100.0500, L501.9520, L500.4050 #### [facility] [address] [place], [address] Chloride [Moles/Vol] 101 mmol/L Normal 98-108 [facility] Comment on above: Performed By: #### L 500.4100, L501.9985, L100.0500, L501.9520, L500.4050 #### [facility] [address] [place], [address] CO2 [Moles/Vol] 27.3 mmol/L Normal 21.0-32.0 [facility] Comment on above: Performed By: #### L 500.4100, L501.9985, L100.0500, L501.9520, L500.4050 #### [facility] [address] [place], [address] Creatinine [Mass/Vol] 0.74 mg/dL Normal 0.70-1.20 [facility] Comment on above: Performed By: #### L 500.4100, L501.9985, L100.0500, L501.9520, L500.4050 #### [facility] [address] [place], [address] GAP 9 Normal 5-15 [facility] Comment on above: Performed By: #### L 500.4100, L501.9985, L100.0500, L501.9520, L500.4050 #### [facility] [address] [place], [address] GFR/1.73 sq M.predicted among non-blacks MDRD (S/P/Bld) [Vol rate/Area] 97 mL/min/{1.73_m2} Normal >60 [facility] Comment on above: Result Comment: mL/m in/1.73m2 CKD-EPI Creatinine Equation (2020) Performed By: #### L 500.4100, L501.9985, L100.0500, L501.9520, L500.4050 #### [facility] [address] [place], [address] Globulin (S) [Mass/Vol] 2.8 g/dL Normal 2.2-4.2 [facility] Comment on above: Performed By: #### L 500.4100, L501.9985, L100.0500, L501.9520, L500.4050 #### [facility] [address] [place], [address] Glucose [Mass/Vol] 99 mg/dL Normal 70-99 [facility] Comment on above: Performed By: #### L 500.4100, L501.9985, L100.0500, L501.9520, L500.4050 #### [facility] [address] [place], [address] Potassium [Moles/Vol] 4.2 mmol/L Normal 3.3-5.1 [facility] Comment on above: Performed By: #### L 500.4100, L501.9985, L100.0500, L501.9520, L500.4050 #### [facility] [address] [place], [address] Sodium [Moles/Vol] 137 mmol/L Normal 133-145 [facility] Comment on above: Performed By: #### L 500.4100, L501.9985, L100.0500, L501.9520, L500.4050 #### [facility] [address] [place], [address] T PROT 7.2 g/dL Normal 5.9-8.4 [facility] Comment on above: Performed By: #### L 500.4100, L501.9985, L100.0500, L501.9520, L500.4050 #### [facility] [address] [place], [address] Urea nitrogen [Mass/Vol] 10 mg/dL Normal 4-19 [facility] Comment on above: Performed By: #### L 500.4100, L501.9985, L100.0500, L501.9520, L500.4050 #### [facility] [address] [place], [address] Hemoglobin A1con 11-21-2024 HbA1c (Bld) [Mass fraction] 5.3 % Normal <=5.6 [facility] Comment on above: Result Comment: Norm al < 5.7 % Prediabetic 5.7 - 6.4 % Diabetic >or= 6.5 % Please note range changes. Performed By: #### L 500.4100, L501.9985, L100.0500, L501.9520, L500.4050 #### [facility] [address] [place], [address] Lipid Profileon 11-21-2024 CHOL:HDL 1.91 Normal [facility] Comment on above: Performed By: #### L 500.4100, L501.9985, L100.0500, L501.9520, L500.4050 #### [facility] [address] [place], [address] Cholesterol [Mass/Vol] 195 mg/dL Normal <=200 [facility] Comment on above: Result Comment: Chol esterol level, Desirable <200 mg/dL Borderline high cholesterol 200-239 mg/dL High cholesterol >=240 mg/dL Recommendations of the NCEP Adult Treatment Panel for the following risk-cutoff thresholds for the [place] population. Performed By: #### L 500.4100, L501.9985, L100.0500, L501.9520, L500.4050 #### [facility] [address] [place], [address] Cholesterol in HDL [Mass/Vol] 102 mg/dL Normal [facility] Comment on above: Result Comment: Yue onal Cholesterol Education Program (NCEP) guidelines: <40 mg/dL: Low HDL-cholesterol (major risk factor for CHD) >= 60 mg/dL: High HDL-cholesterol (negative risk factor for CHD) HDL-cholesterol is affected by a number of factors, e.g. smoking, exercise, hormones, sex and age. Performed By: #### L 500.4100, L501.9985, L100.0500, L501.9520, L500.4050 #### [facility] [address] [place], [address] Cholesterol in LDL [Mass/Vol] 79 mg/dL Normal [facility] Comment on above: Result Comment: Bord twxqnr=567-912 mg/dL Higher Pneq=237 mg/dL or greater Friedwald Equation for LDL-C Performed By: #### L 500.4100, L501.9985, L100.0500, L501.9520, L500.4050 #### [facility] [address] [place], [address] Cholesterol in VLDL [Mass/Vol] 14 mg/dL Normal 5-40 [facility] Comment on above: Performed By: #### L 500.4100, L501.9985, L100.0500, L501.9520, L500.4050 #### [facility] [address] [place], [address] Triglyceride [Mass/Vol] 68 mg/dL Normal [facility] Comment on above: Result Comment: The drugs N-Acetylcysteine and Metamizole may falsely depress this assay. Normal range: <150 mg/dL Borderline High: 150-199 mg/dL High: 200-499 mg/dL Very High: >500 mg/dL Performed By: #### L 500.4100, L501.9985, L100.0500, L501.9520, L500.4050 #### [facility] [address] [place], [address] Thyroid Stim Hormone (TSH)on 11-21-2024 TSH 1.530 uIU/mL Normal 0.300-4.200 [facility] Comment on above: Performed By: #### L 500.4100, L501.9985, L100.0500, L501.9520, L500.4050 #### [facility] [address] [place], [place], [address] Chest PA and Lateralon 11-18 Chest PA and Lateral [facility] [address] [place] [address] Chest PA and Lateral MR#: [id number] Acct: [id number] Name: ALESIA SHIELDS Rep #: [id number] : 1970 F 54 From: Kemal Mccormack MD PCP: Dr. Thiago Mcduffie MD Status: REG CLI Study: Chest PA and Lateral Date of Exam: 11/18/24 Exam# [id number] Ordering Dr: Thiago Mcduffie MD PROCEDURE: CHEST PA AND LATERAL; RIBS BILAT 3V NO CXR 11/18/2024 REASON FOR EXAM: RIB PAIN; INJURY OF RIB TECHNIQUE: Procedure Code: RADCXR; [id number] Modality: DX Procedure: CHEST PA AND LATERAL; RIBS BILAT 3V NO CXR AP and lateral chest radiographs including bilateral views of both ribs. COMPARISON: None FINDINGS: Hardware: Cervical fusion hardware present. Heart: The heart size is normal. Mediastinum: The mediastinal contour is unremarkable. Lungs: The lungs are clear. Nonspecific moderate left lung base elevation. Bones: No acute displaced rib fracture is identified. RAD/Chest PA and Lateral IMPRESSION: 1. No acute cardiopulmonary process. 2. No radiographic evidence of acute displaced rib fracture. If focal pain persists consider follow-up with CT chest without contrast. Reading Location: [facility] CC: Dr. Thiago Mcduffie MD Senior Underwriting Assistant: Signed Normal [facility] Ribs Bilat 3V No CXRon 11-18 Ribs Bilat 3V No CXR [facility] [address] [place], [place] [address] Ribs Bilat 3V No CXR MR#: [id number] Acct: [id number] Name: ALESIA SHIELDS Rep #: [id number] : 1970 F 54 From: Kemal Mccormack MD PCP: Dr. Thiago Mcduffie MD Status: REG CLI Study: Ribs Bilat 3V No CXR Date of Exam: 11/18/24 Exam# [id number] Ordering Dr: Thiago Mcduffie MD PROCEDURE: CHEST PA AND LATERAL; RIBS BILAT 3V NO CXR 11/18/2024 REASON FOR EXAM: RIB PAIN; INJURY OF RIB TECHNIQUE: Procedure Code: RADCXR; [id number] Modality: DX Procedure: CHEST PA AND LATERAL; RIBS BILAT 3V NO CXR AP and lateral chest radiographs including bilateral views of both ribs. COMPARISON: None FINDINGS: Hardware: Cervical fusion hardware present. Heart: The heart size is normal. Mediastinum: The mediastinal contour is unremarkable. Lungs: The lungs are clear. Nonspecific moderate left lung base elevation. Bones: No acute displaced rib fracture is identified. RAD/Ribs Bilat 3V No CXR IMPRESSION: 1. No acute cardiopulmonary process. 2. No radiographic evidence of acute displaced rib fracture. If focal pain persists consider follow-up with CT chest without contrast. Reading Location: [facility] CC: Dr. Thiago Mcduffie MD Senior Underwriting Assistant: Signed Normal [facility] SURG PATH REQUESTon 08-13-19 Case Report Normal [facility] Comment on above: Result Comment: Surg ical Pathology Report Case: [id number] Authorizing Provider: Troy Trujillo MD Collected: 08/12/2024 10:41 AM Ordering Location: [facility] Received: 08/13/2024 09:15 AM Pathologist: Shannan Wilkes DO Specimens: A) - Stomach biopsy, ANTRUM BX B) - Esophagus biopsy, SCJ BX Performed By: #### S URGP #### [facility] (DEFAULT) [address] [place] [address] Clinical History Preop Diagnosis: GERD, screening. Postop Diagnosis: Bile in stomach. Normal [facility] Comment on above: Performed By: #### S URGP #### [facility] (DEFAULT) [address] [place] [address] Gross Description Normal [facility] Comment on above: Result Comment: The specimen is received in two properly labeled containers with the patient's name and accession number. A. The specimen is designated antrum biopsy and consists of one piece of bose tissue measuring 0.3 cm in greatest dimension. TE 1 B. The specimen is designated squamocolumnar junction biopsy and consists of three pieces of off white and bose tissue ranging from 0.2 cm to 0.4 cm in greatest dimension. TE 1 Lab Use Only: JobID [id number] Performed By: #### S URGP #### [facility] (DEFAULT) [address] [address] Microscopic Description A microscopic examination was performed. [facility] Comment on above: Performed By: #### S URGP #### [facility] (DEFAULT) [address] [address] Pathologic Diagnosis [facility] Comment on above: Result Comment: A. S tomach, antrum: Antral mucosa with mild chronic inflammation No morphologic evidence of Helicobacter pylori organisms B. Squamocolumnar junction: Benign squamous epithelium Oxyntocardiac type mucosa with mild chronic inflammation, negative for goblet cells at 1032 EDT Performed By: #### S URGP #### [facility] (DEFAULT) [address] [address] Professional Interpretation Performed at: [facility] Comment on above: Result Comment: [facility] For Immediate [facility] [address] [place] [address] Performed By: #### S URGP #### [facility] (DEFAULT) [address] [address] Surgery Visit Reporton 05-14 Surgery Visit Report [facility] [address] [place] [address]. [address] [place] [address] OFFICE VISIT Date of Service: 05/14/24 MR#: [id number] Acct: [id number] Name: ALESIA SHIELDS Rep #: [id number] : 1970 Provider: Dr. Sachin diaz MD Age/Sex: 54/F [facility] [facility] Status: Signed Intake Vital Signs 03/03/24 15:43 05/14/24 14:37 Height 5 ft 4 in 5 ft 4 in Weight: 147 lb BMI 25.2 BP 139/90 H Blood Pressure Location Lt brachial Position Sitting Respiration 16 Pulse 81 Pulse Source Monitor Temp 98.2 F Temp Source Temporal Pulse Oximetry (%) 100 Oxygen Delivery Method room air Intake Visit Reasons: SCREENING UPPER AND LOWER Allergies Iodinated Contrast Media Allergy (Verified 05/14/24 14:38) Anaphylaxis Medications ???Medication ???Instructions ???Recorded ???Confirmed ???Type venlafaxine 37.5 mg 37.5 mg PO DAILY 02/14/23 05/14/24 History capsule,extended release 24 hr ibuprofen 200 mg tablet (Advil) 200 mg PO Q6H PRN 03/03/24 5 History PFSH Medical History (Updated 05/14/24 @ 14:35 by Melinda Porter) MRSA (methicillin resistant Staphylococcus aureus) Arthritis Hx of colonic polyp Chronic back pain Surgical History (Updated 05/14/24 @ 14:35 by Melinda Porter) S/P sinus surgery S/P dilation and curettage S/P cholecystectomy S/P cervical spinal fusion Hx of colonoscopy H/O spinal fusion History of laminectomy Family History (Updated 05/14/24 @ 14:40 by Melinda Porter) Grandmother Colon cancer, Onset Age: 67 Maternal Kidney disease Mother Arthritis Hypertension Father Arthritis Diabetes Hypertension Social History (Updated 05/14/24 @ 14:37 by Melinda Porter) household members: spouse current occupational status: unemployed Smoking Status: Never smoker alcohol intake: current alcohol intake frequency: a few times a week substance use type: does not use and other details: Patient states I drink Kratom every day for pain. additional social history: Does not use aspirin daily. Uses ibuprofen regularly. HPI HPI HPI: Patient is a 54-year-old female here for screening colonoscopy. She is also inquiring about screening EGD. She reports no issues with her esophagus. She is not having any GERD. She denies abdominal pain or blood in the stool. She does have family history of colon cancer in a grandmother. She says her last colonoscopy was about 10 years ago and a small polyp was removed. ROS General General: No weight change, fatigue, colon cancer or breast cancer HEENT HEENT: Yes difficulty swallowing; No eye injury, eye surgery or swollen glands Endo Endocrine: No thyroid disease, diabetes mellitus or thyroid cancer Skin Skin: No rash or changing moles Musc Musculoskeletal: Yes back problems and arthritis; No rheumatoid arthritis or gout Cardio Cardiovascular: No murmur, pacemaker, heart disease, atrial fibrillation, high blood pressure, heart attack or heart stent Psych Psychiatric: No depression or anxiety Resp Respiratory: No shortness of breath, No sleep apnea, No cough, No COPD, No asthma and No emphysema Gastro Gastrointestinal: No abdominal pain, No nausea or vomiting, No diarrhea, No constipation, No blood in stool, Yes acid reflux, No hemorrhoids, No ulcers, No gallbladder problem and No black,tarry stools Mark Hematologic: No blood thinners, No blood disorders, No bleeding, No anemia and No blood clots Neuro Neurologic: No numbness and No tingling Exam Const General: cooperative Orientation: alert and oriented x3 HENMT Head: normal to inspection Neck Neck: normal visual inspection and full ROM Chest Chest palpation inspection: normal inspection of the chest Resp Effort Inspection: normal respiratory effort Auscultation: clear to auscultation bilaterally Cardio Rate: regular rate Rhythm: regular rhythm GI Inspection: non-distended Palpation: soft and nontender Skin General: no rashes or lesions noted Neuro General: patient alert and patient oriented x3 Extrem General: full ROM Psych Appearance: grossly normal Mental Status: mental status grossly normal Assessment and Plan Assessment and Plan (1) Encounter for screening for malignant neoplasm of colon: Status: Acute Plan: I explained endoscopy in detail to the patient. I explained the risks including but not limited to stroke or heart attack with anesthesia, perforation of the GI tract, bleeding, infection. I explained that any of these could necessitate further emergency surgery. The patient understands and all questions were answered sufficiently. The patient wishes to proceed with procedure. Sachin Alexandre MD Pager: [facility] [address] [place] [address] (more content not included)... Normal [facility] A1Con 10-28-2023 Average glucose Estimated from glycated hemoglobin (Bld) [Mass/Vol] 105 mg/dL Normal 68-125 [facility] Comment on above: Performed By: #### H FA1C #### [facility] [address] [place] [address] [employer] - Shannan SHIN [id number] HA1C A1C INTERPRETATION %A1c (NGSP) Interpretation 3.8 - 6.4 Non-Diabetic Range 5.7 - 6.4 Prediabetic >6.5 Action Suggested The eAG (estimated average glucose) is an estimation of one?s average blood glucose level, calculated based on A1C test results, reported using the same units (mg/dL) seen on blood glucose meters. Normal [facility] Comment on above: Performed By: #### H FA1C #### [facility] [address] [place] [address] [employer] Ho[employer] - Shannan SHIN [id number] HbA1c (Bld) [Mass fraction] 5.3 %A1C Normal 3.8-6.4 [facility] Comment on above: Performed By: #### H FA1C #### [facility] [address] [place] [address] [employer] Ho[employer] Operator - Shannan SHIN [id number] Lipid panel with direct LDLo n 10-28-2023 Cholesterol [Mass/Vol] 204 mg/dL High <=200 [facility] Comment on above: Performed By: #### 5 7698-3 #### [facility] [address] [place] [address] [employer] Operator - Shannan SHIN [id number] Cholesterol in HDL [Mass/Vol] 86 mg/dL High 40-59 [facility] Comment on above: Performed By: #### 5 7698-3 #### [facility] [address] [place] [address] [employer] Operator - Shannan SHIN [id number] Cholesterol in LDL [Mass/Vol] 106 mg/dL High 5-100 [facility] Comment on above: Performed By: #### 5 7698-3 #### [facility] [address] [place] [address] [employer] Ho[employer] Operator - Shannan SHIN [id number] Cholesterol in LDL/Cholesterol in HDL [Mass ratio] 1.2 {ratio} Normal [facility] Comment on above: Performed By: #### 5 7698-3 #### [place] [address] [employer] Ho[employer] Operator - Shannan SHIN [id number] Cholesterol.total/Ch olesterol in HDL [Mass ratio] 2.4 {ratio} Normal [facility] Comment on above: Performed By: #### 5 7698-3 #### [place] [address] [employer] Ho[employer] Operator - Shannan SHIN [id number] HCHOL CHOLESTEROL INTERPRETATION Desirable <200 Borderline High 200-239 High >240 Normal [facility] Comment on above: Performed By: #### 5 7698-3 #### [place] [address] [employer] Ho[employer] Operator - Shannan TERRELLIA [id number] HLDL LDL INTERPRETATION Desirable <100 Near Optimal 100-129 Borderline High 130-159 High 160-190 Very High >190 Normal [facility] Comment on above: Performed By: #### 5 7698-3 #### [place] [address] [employer] Ho[employer] Operator - Shannan SHIN [id number] HLIPID ATEROSCLEROSIS RISK FACTORS FOR LDL, HDL, AND CHOLESTEROL RISK FACTOR SEX LDL/HDL CHOL/HDL 1/2 Average M 1.00 3.43 F 1.47 3.27 Average M 3.55 4.97 F 3.22 4.44 2X Average M 6.25 9.55 F 5.03 7.05 3X Average M 7.99 23.39 F 6.14 11.04 Normal [facility] Comment on above: Performed By: #### 5 7698-3 #### [facility] [address] [place], [place] [address] Tower Ho[employer] Operator - Shannan Thompson NIDHINELY [id number] HTRIG TRIGLYCERIDES INTERPRETATION Normal <150 Borderline High 150-199 High 200-499 Very High >500 Normal [facility] Comment on above: Performed By: #### 5 7698-3 #### [facility] [address] [place] [address] [employer] Ho[employer] Operator - Shannan SHIN [id number] Triglyceride [Mass/Vol] 67 mg/dL Normal <=150 [facility] Comment on above: Performed By: #### 5 7698-3 #### [facility] [address] [place] [address] [employer] Hoist Operator - Shannan Thompsonroxi SHIN [id number] CT CERVICAL SPINE WO IV CONT Enzo 05-16-2023 CT CERVICAL SPINE WO IV CONTRAST Interpreted By: Deacon Frideman, STUDY: CT CERVICAL SPINE WO IV CONTRAST; 05/16/2023 11:57 am INDICATION: Signs/Symptoms:unders tand bony anatomy and r/o OPLL. COMPARISON: Cervical spine radiographs dated 04/02/2014. ACCESSION NUMBER(S): [id number] ORDERING CLINICIAN: SUNNY BALLESTEROS TECHNIQUE: Axial CT images of the cervical spine are obtained. Axial, coronal and sagittal reconstructions are provided for review. Metal artifact reduction techniques employed. FINDINGS: ACDF components spanning C3-C7. Plate and screw components spanning the C3-C7 levels with interbody fixation spanning the entirety these levels as well. There is mature ankylosis of the C3-C7 vertebral body segments. The plate and screw components appear intact with no backing out or significant periprosthetic lucency. The plate appears flush with the anterior aspect of C3, C5, C6, and C7. Evidence of posterior spinal fusion with C3-C7 laminectomies. Left-sided posterior fusion hardware components span C3-T2 while right-sided components span C3-C6. Posterior pedicular screws are present at each level apart from the left C7 level. The posterior spinal fusion hardware components appear intact without periprosthetic lucency. There is incomplete healing of a remote appearing nondisplaced fracture involving the left anterior arch of C1 with element of callus formation/bridging osseous union within the central aspect and fracture plane persistent inferiorly and superiorly (series 212, image 57, for example). No acute fracture. Levo scoliosis of the cervical spine. There is also trace anterolisthesis of C3 on C4 and estimated 3 mm anterolisthesis of C7 on T1. There is moderate degenerative disc height loss at C7-T1. Ankylosis of a majority of the posterior elements at C3-C7. Degenerative Change: C1-C2: Rzax-ba-ovsphvuy arthrosis involving the dens. Element of pannus formation. No significant spinal canal stenosis apparent. C2-C3: Severe left and moderate right facet arthropathy. Zlqe-ciiwscj-bcjo-rig ht uncovertebral spurring with minimal disc bulge. No spinal canal stenosis apparent. Mild right and moderate left neural foraminal narrowing suggested. C3-C4: Previous laminectomy/posterior decompression. Beam hardening artifact significantly degrades assessment. No CT apparent spinal canal stenosis. Residual facet and lowr-vmxqydr-hsui-rig ht uncovertebral spurring with moderate to severe left and no significant right osseous neural foraminal narrowing. C4-C5: Previous laminectomy/posterior decompression. Beam hardening artifact significantly degrades assessment. No CT apparent spinal canal stenosis. Bnuy-lhooziw-ijtg-rig ht uncovertebral spurring residual facet spurring with mild left and no significant right osseous neural foraminal narrowing. C5-C6: Previous laminectomy/posterior decompression. Beam hardening artifact significantly degrades assessment. No CT apparent spinal canal stenosis. Residual uncovertebral/endplat e spurring and facet arthropathy with moderate right and mild left osseous neural foraminal narrowing. C6-C7: Previous laminectomy/posterior decompression. Beam hardening artifact significantly degrades assessment. No CT apparent spinal canal stenosis. Cppq-il-pgxkmsxo bilateral osseous neural foraminal narrowing secondary to residual uncovertebral/endplat e spurring and facet arthropathy. C7-T1: Previous laminectomy/posterior decompression. Beam hardening artifact significantly degrades assessment. No CT apparent spinal canal stenosis. Yidi-kn-cbjbtmxp right and mild left neural foraminal narrowing suggested secondary to facet arthropathy and residual endplate spurring. Prevertebral/Paraspin al Soft Tissues: The prevertebral and paraspinal soft tissues are otherwise unremarkable. Lung Apices: Unremarkable. IMPRESSION: Postoperative change of C3-C7 ACDF as well as left C3-T2 and right C3-C6 posterior spinal fusion with C3-C7 laminectomy and decompression. There is mature ankylosis of the C3-C7 vertebral body segments. No CT apparent hardware complication. Beam hardening artifact significantly degrades evaluation with no CT apparent spinal canal stenosis. Multilevel neural foraminal narrowing as detailed above. There is a remote appearing, incompletely healed nondisplaced fracture involving the left anterior arch of C1 as described above. No acute osseous abnormality. MACRO: None Signed by: Deacon Friedman 05/16/2023 2:16 PM Dictation workstation: [id number] [facility] CT Cervical spine WO contras ton 05-16-2023 Postoperative change of C3-C7 ACDF as well as left C3-T2 and right C3-C6 posterior spinal fusion with C3-C7 laminectomy and decompression. There is mature ankylosis of the C3-C7 vertebral body segments. No CT apparent hardware complication. Beam hardening artifact significantly degrades evaluation with no CT apparent spinal canal stenosis. Multilevel neural foraminal narrowing as detailed above. There is a remote appearing, incompletely healed nondisplaced fracture involving the left anterior arch of C1 as described above. No acute osseous abnormality. MACRO: None Signed by: Deacon Friedman 05/16/2023 2:16 PM Dictation workstation: [id number] [facility] Interpreted By: Deacon Friedman, STUDY: CT CERVICAL SPINE WO IV CONTRAST; 05/16/2023 11:57 am INDICATION: Signs/Symptoms:unders tand bony anatomy and r/o OPLL. COMPARISON: Cervical spine radiographs dated 04/02/2014. ACCESSION NUMBER(S): [id number] ORDERING CLINICIAN: SUNNY BALLESTEROS TECHNIQUE: Axial CT images of the cervical spine are obtained. Axial, coronal and sagittal reconstructions are provided for review. Metal artifact reduction techniques employed. FINDINGS: ACDF components spanning C3-C7. Plate and screw components spanning the C3-C7 levels with interbody fixation spanning the entirety these levels as well. There is mature ankylosis of the C3-C7 vertebral body segments. The plate and screw components appear intact with no backing out or significant periprosthetic lucency. The plate appears flush with the anterior aspect of C3, C5, C6, and C7. Evidence of posterior spinal fusion with C3-C7 laminectomies. Left-sided posterior fusion hardware components span C3-T2 while right-sided components span C3-C6. Posterior pedicular screws are present at each level apart from the left C7 level. The posterior spinal fusion hardware components appear intact without periprosthetic lucency. There is incomplete healing of a remote appearing nondisplaced fracture involving the left anterior arch of C1 with element of callus formation/bridging osseous union within the central aspect and fracture plane persistent inferiorly and superiorly (series 212, image 57, for example). No acute fracture. Levo scoliosis of the cervical spine. There is also trace anterolisthesis of C3 on C4 and estimated 3 mm anterolisthesis of C7 on T1. There is moderate degenerative disc height loss at C7-T1. Ankylosis of a majority of the posterior elements at C3-C7. Degenerative Change: C1-C2: Ggon-pt-temdtwdg arthrosis involving the dens. Element of pannus formation. No significant spinal canal stenosis apparent. C2-C3: Severe left and moderate right facet arthropathy. Tbes-nixrcvz-kvhh-rig ht uncovertebral spurring with minimal disc bulge. No spinal canal stenosis apparent. Mild right and moderate left neural foraminal narrowing suggested. C3-C4: Previous laminectomy/posterior decompression. Beam hardening artifact significantly degrades assessment. No CT apparent spinal canal stenosis. Residual facet and jtdn-jeoccou-texs-rig ht uncovertebral spurring with moderate to severe left and no significant right osseous neural foraminal narrowing. C4-C5: Previous laminectomy/posterior decompression. Beam hardening artifact significantly degrades assessment. No CT apparent spinal canal stenosis. Bbbc-mijutmg-loha-rig ht uncovertebral spurring residual facet spurring with mild left and no significant right osseous neural foraminal narrowing. C5-C6: Previous laminectomy/posterior decompression. Beam hardening artifact significantly degrades assessment. No CT apparent spinal canal stenosis. Residual uncovertebral/endplat e spurring and facet arthropathy with moderate right and mild left osseous neural foraminal narrowing. C6-C7: Previous laminectomy/posterior decompression. Beam hardening artifact significantly degrades assessment. No CT apparent spinal canal stenosis. Xhed-qs-zjcjwgnm bilateral osseous neural foraminal narrowing secondary to residual uncovertebral/endplat e spurring and facet arthropathy. C7-T1: Previous laminectomy/posterior decompression. Beam hardening artifact significantly degrades assessment. No CT apparent spinal canal stenosis. Qcxe-fx-axsdxnlt right and mild left neural foraminal narrowing suggested secondary to facet arthropathy and residual endplate spurring. Prevertebral/Paraspin al Soft Tissues: The prevertebral and paraspinal soft tissues are otherwise unremarkable. Lung Apices: Unremarkable. [facility] Deacon Friedman MD - 05/16/2023 Interpreted By: Deacon Friedman, STUDY: CT CERVICAL SPINE WO IV CONTRAST; 05/16/2023 11:57 am INDICATION: Signs/Symptoms:unders tand bony anatomy and r/o OPLL. COMPARISON: Cervical spine radiographs dated 04/02/2014. ACCESSION NUMBER(S): [id number] ORDERING CLINICIAN: SUNNY BALLESTEROS TECHNIQUE: Axial CT images of the cervical spine are obtained. Axial, coronal and sagittal reconstructions are provided for review. Metal artifact reduction techniques employed. FINDINGS: ACDF components spanning C3-C7. Plate and screw components spanning the C3-C7 levels with interbody fixation spanning the entirety these levels as well. There is mature ankylosis of the C3-C7 vertebral body segments. The plate and screw components appear intact with no backing out or significant periprosthetic lucency. The plate appears flush with the anterior aspect of C3, C5, C6, and C7. Evidence of posterior spinal fusion with C3-C7 laminectomies. Left-sided posterior fusion hardware components span C3-T2 while right-sided components span C3-C6. Posterior pedicular screws are present at each level apart from the left C7 level. The posterior spinal fusion hardware components appear intact without periprosthetic lucency. There is incomplete healing of a remote appearing nondisplaced fracture involving the left anterior arch of C1 with element of callus formation/bridging osseous union within the central aspect and fracture plane persistent inferiorly and superiorly (series 212, image 57, for example). No acute fracture. Levo scoliosis of the cervical spine. There is also trace anterolisthesis of C3 on C4 and estimated 3 mm anterolisthesis of C7 on T1. There is moderate degenerative disc height loss at C7-T1. Ankylosis of a majority of the posterior elements at C3-C7. Degenerative Change: C1-C2: Ehyz-wp-yibqbqsf arthrosis involving the dens. Element of pannus formation. No significant spinal canal stenosis apparent. C2-C3: Severe left and moderate right facet arthropathy. Wdqz-cckkywq-coav-rig ht uncovertebral spurring with minimal disc bulge. No spinal canal stenosis apparent. Mild right and moderate left neural foraminal narrowing suggested. C3-C4: Previous laminectomy/posterior decompression. Beam hardening artifact significantly degrades assessment. No CT apparent spinal canal stenosis. Residual facet and bieo-sflotnn-jdtj-rig ht uncovertebral spurring with moderate to severe left and no significant right osseous neural foraminal narrowing. C4-C5: Previous laminectomy/posterior decompression. Beam hardening artifact significantly degrades assessment. No CT apparent spinal canal stenosis. Svsg-hpeftql-vdeo-rig ht uncovertebral spurring residual facet spurring with mild left and no significant right osseous neural foraminal narrowing. C5-C6: Previous laminectomy/posterior decompression. Beam hardening artifact significantly degrades assessment. No CT apparent spinal canal stenosis. Residual uncovertebral/endplat e spurring and facet arthropathy with moderate right and mild left osseous neural foraminal narrowing. C6-C7: Previous laminectomy/posterior decompression. Beam hardening artifact significantly degrades assessment. No CT apparent spinal canal stenosis. Jbch-cp-gbulgawi bilateral osseous neural foraminal narrowing secondary to residual uncovertebral/endplat e spurring and facet arthropathy. C7-T1: Previous laminectomy/posterior decompression. Beam hardening artifact significantly degrades assessment. No CT apparent spinal canal stenosis. Npep-du-lubfysgr right and mild left neural foraminal narrowing suggested secondary to facet arthropathy and residual endplate spurring. Prevertebral/Paraspin al Soft Tissues: The prevertebral and paraspinal soft tissues are otherwise unremarkable. Lung Apices: Unremarkable. IMPRESSION: Postoperative change of C3-C7 ACDF as well as left C3-T2 and right C3-C6 posterior spinal fusion with C3-C7 laminectomy and decompression. There is mature ankylosis of the C3-C7 vertebral body segments. No CT apparent hardware complication. Beam hardening artifact significantly degrades evaluation with no CT apparent spinal canal stenosis. Multilevel neural foraminal narrowing as detailed above. There is a remote appearing, incompletely healed nondisplaced fracture involving the left anterior arch of C1 as described above. No acute osseous abnormality. MACRO: None Signed by: Deacon Friedman 05/16/2023 2:16 PM Dictation workstation: [id number] [facility] Work Phone: Radiology Study observation (narrative) [facility] Work Phone: CT Cervical spine WO contras tOrdered By: Deacon Friedman on 05-16-2023 [facility] Work Phone: XR Ankle Viewson 04-20-2023 Postsurgical changes of multilevel fusion of the cervical spine without evidence of hardware complication. Multilevel degenerative changes of the lumbar spine are noted. There is also grade 1 anterolisthesis of L3 upon L4. Signed by: Luke Nye 04/20/2023 4:12 PM Dictation workstation: [id number] MMODAL Interpreted By: Luke Nye, STUDY: XR EOS FULL BODY EAM THROUGH ANKLE 2 VIEWS; 04/20/2023 1:59 pm INDICATION: Signs/Symptoms:neck and back pain. COMPARISON: None. ACCESSION NUMBER(S): [id number] ORDERING CLINICIAN: SUNNY BALLESTEROS FINDINGS: AP and lateral radiographs of the whole-body were obtained from the skull to the feet. There are postsurgical changes of C3-C7 ACDF as well as left-sided C3-C6 posterior screw and plate fusion and left C3-T1 posterior screw and plate fusion. There is no evidence of hardware complications. No acute osseous changes. Vertebral body height is intact. There is mild S shaped scoliotic curvature of the lower thoracic and upper lumbar spine. There is mild anterolisthesis of L3 upon L4. There is moderate disc space narrowing of L4-L5 with endplate osteophytosis noted. Multilevel facet hypertrophy is also visualized. There is no focal consolidation, large pleural effusion, or large pneumothorax. There is a nonspecific nonobstructive bowel gas pattern. MMODAL Luke Nye MD - 04/20/2023 Interpreted By: Luke Nye, STUDY: XR EOS FULL BODY EAM THROUGH ANKLE 2 VIEWS; 04/20/2023 1:59 pm INDICATION: Signs/Symptoms:neck and back pain. COMPARISON: None. ACCESSION NUMBER(S): [id number] ORDERING CLINICIAN: SUNNY BALLESTEROS FINDINGS: AP and lateral radiographs of the whole-body were obtained from the skull to the feet. There are postsurgical changes of C3-C7 ACDF as well as left-sided C3-C6 posterior screw and plate fusion and left C3-T1 posterior screw and plate fusion. There is no evidence of hardware complications. No acute osseous changes. Vertebral body height is intact. There is mild S shaped scoliotic curvature of the lower thoracic and upper lumbar spine. There is mild anterolisthesis of L3 upon L4. There is moderate disc space narrowing of L4-L5 with endplate osteophytosis noted. Multilevel facet hypertrophy is also visualized. There is no focal consolidation, large pleural effusion, or large pneumothorax. There is a nonspecific nonobstructive bowel gas pattern. IMPRESSION: Postsurgical changes of multilevel fusion of the cervical spine without evidence of hardware complication. Multilevel degenerative changes of the lumbar spine are noted. There is also grade 1 anterolisthesis of L3 upon L4. Signed by: Luke Nye 04/20/2023 4:12 PM Dictation workstation: [id number] [facility] Work Phone: Radiology Study observation (narrative) [facility] Work Phone: XR Ankle ViewsOrdered By: Sa jarred Nye on 04-20-2023 [facility] Work Phone: XR EOS FULL BODY EAM THROUGH ANKLE 2 VIEWSon 04-20-2023 XR EOS FULL BODY EAM THROUGH ANKLE 2 VIEWS Interpreted By: Luke Nye, STUDY: XR EOS FULL BODY EAM THROUGH ANKLE 2 VIEWS; 04/20/2023 1:59 pm INDICATION: Signs/Symptoms:neck and back pain. COMPARISON: None. ACCESSION NUMBER(S): [id number] ORDERING CLINICIAN: SUNNY BALLESTEROS FINDINGS: AP and lateral radiographs of the whole-body were obtained from the skull to the feet. There are postsurgical changes of C3-C7 ACDF as well as left-sided C3-C6 posterior screw and plate fusion and left C3-T1 posterior screw and plate fusion. There is no evidence of hardware complications. No acute osseous changes. Vertebral body height is intact. There is mild S shaped scoliotic curvature of the lower thoracic and upper lumbar spine. There is mild anterolisthesis of L3 upon L4. There is moderate disc space narrowing of L4-L5 with endplate osteophytosis noted. Multilevel facet hypertrophy is also visualized. There is no focal consolidation, large pleural effusion, or large pneumothorax. There is a nonspecific nonobstructive bowel gas pattern. IMPRESSION: Postsurgical changes of multilevel fusion of the cervical spine without evidence of hardware complication. Multilevel degenerative changes of the lumbar spine are noted. There is also grade 1 anterolisthesis of L3 upon L4. Signed by: Luke Nye 04/20/2023 4:12 PM Dictation workstation: [id number] [facility] XR LUMBAR SPINE 4+ VIEWS WIT H FLEXION EXTENSIONon 04-20-2023 XR LUMBAR SPINE 4+ VIEWS WITH FLEXION EXTENSION Interpreted By: Jaki Rossi and Beyersdorf Conner STUDY: Cervical spine, 6 views. INDICATION: Signs/Symptoms:back pain. COMPARISON: None. ACCESSION NUMBER(S): [id number] ORDERING CLINICIAN: SUNNY BALLESTEROS FINDINGS: Mild dextrocurvature of the upper lumbar spine. Grade 1 anterolisthesis of L3-4 and L4-5. Severe intervertebral disc narrowing at L4-5 and mild narrowing at L5-S1 with associated endplate spurring. Moderate facet hypertrophy at L4-5 and L5-S1. There is mild anterior height loss of L5 which may represent a remote compression fracture sequela. No dynamic instability. Prevertebral soft tissues are unremarkable. IMPRESSION: Advanced degenerative changes at L4-5 and L5-S1 as described above. Mild dextroscoliosis centered in the upper lumbar region. Mild and likely chronic compression deformity of L5. I personally reviewed the image(s)/study and resident interpretation. I agree with the findings as stated by resident Ryley Espinoza. Data analyzed and images interpreted at [facility], [place], [place]. MACRO: none Signed by: Jaki Rossi 04/23/2023 11:58 AM Dictation workstation: [id number] [facility] Comment on above: Order Comment: Pleas e ensure that the FEMORAL HEADS can be visualized on the LATERAL X ray. Perform Standing, AP + Lateral with Flexion/Extension Views HPV (Human Papilomavirus) Hi Riskon 02-19-2020 HPV identified Nom (Unsp spec) ALESIA SHIELDS [id number] YRS F [id number] RM/BD ORDERING PHYSICIAN: DEREK ADAME 14 RESULT TRANSMITTED: 02/24/20 [id number] CYTOLOGY REPORT - THIN PREP TECHNIQUE CLINICAL HISTORY LMP: 02/02/20 HIGH RISK? NO ? NO COMMENT: [id number] HPVHR,PAP NORM HPV POS REFLEX TO 16 18 SPECIMEN SOURCE: CERVICAL,ENDOCERVICAL ;VIAL STATEMENT OF SPECIMEN ADEQUACY: Smear satisfactory for interpretation. Endocervical component present. DIAGNOSIS: NEGATIVE FOR INTRAEPITHELIAL LESION OR MALIGNANCY. KL :KL :KL By: JOANN Wong(ASCP) at [facility] 02/23/20 (Electronic Signature) COMMENT: The technical component was performed at [facility], [address] [place] [address]. Microscopic examination was performed. Case resulted at [facility]. THIS SPECIMEN HAS BEEN ANALYZED BY THE THINPREP IMAGING SYSTEM([employer]), AN AUTOMATED IMAGING SYSTEM, WHICH ASSISTS THE LABORATORY IN EVALUATING CELLS ON THINPREP PAP TEST. FOLLOWING AUTOMATED IMAGING TO DETECT CELLS OF INTEREST, SELECTED CASPER FROM EVERY SLIDE ARE REVIEWED BY A DIRECTOR OF HOSPITALITY. IF INDICATED, THE SLIDE IS REFERRED TO A PATHOLOGIST FOR FURTHER EVALUATION. THE PAP SMEAR IS A SCREENING TEST WITH AN IRREDUCIBLE FALSE-NEGATIVE RATE, THE CONSEQUENCES OF WHICH CAN BE MINIMIZED BY OBTAINING AN ANNUAL PAP SMEAR. FOOTNOTE ADDED ON 02/23/20 AT 0904 BY KAYE HPV HIGH RISK NEGATIVE The FDA approved Jag.ag Aptima Assay detects the fourteen high risk HPV genotypes known to cause cervical cancer and its precursor lesions (types 16,18,31,33,35,39,45, 51,52,56,58,59,66 and 68) in cervical specimens collected in ThinPrep PreservCyt Solution. The test has been approved to screen patients with ASCUS cervical cytology results to determine the need for referral to colposcopy and used adjunctively with cervical cytology results to screen women 30 years and older to assess the presence or absence of high-risk HPV types. This test was performed in [facility] at [facility]. [facility] is certified under the Clinical Laboratory Improvement Amendment (CLIA 88) to perform high complexity clinical laboratory testing. FOOTNOTE ADDED ON 02/24/20 AT 0858 BY KAYE SPECIMEN SOURCE: THINPREP END OF REPORT END OF REPORT Normal [facility] Thinprep Pap Diagnosticon Cytology report Cyto stain.thin prep Doc (Cvx/Vag) ALESIA SHIELDS [id number] YRS F [id number] RM/BD ORDERING PHYSICIAN: DEREK ADAME 14 RESULT TRANSMITTED: 02/23/20 09 CYTOLOGY REPORT - THIN PREP TECHNIQUE CLINICAL HISTORY LMP: 02/02/20 HIGH RISK? NO ? NO COMMENT: [id number] HPVHR,PAP NORM HPV POS REFLEX TO 16 18 SPECIMEN SOURCE: CERVICAL,ENDOCERVICAL ;VIAL STATEMENT OF SPECIMEN ADEQUACY: Smear satisfactory for interpretation. Endocervical component present. DIAGNOSIS: NEGATIVE FOR INTRAEPITHELIAL LESION OR MALIGNANCY. KL :KL :KL By: JOANN Wong(ASCP) at [facility] 02/23/20 (Electronic Signature) COMMENT: The technical component was performed at [facility], [address] [place] [address]. Microscopic examination was performed. Case resulted at [facility]. THIS SPECIMEN HAS BEEN ANALYZED BY THE THINPREP IMAGING SYSTEM([employer]), AN AUTOMATED IMAGING SYSTEM, WHICH ASSISTS THE LABORATORY IN EVALUATING CELLS ON THINPREP PAP TEST. FOLLOWING AUTOMATED IMAGING TO DETECT CELLS OF INTEREST, SELECTED CASPER FROM EVERY SLIDE ARE REVIEWED BY A DIRECTOR OF HOSPITALITY. IF INDICATED, THE SLIDE IS REFERRED TO A PATHOLOGIST FOR FURTHER EVALUATION. THE PAP SMEAR IS A SCREENING TEST WITH AN IRREDUCIBLE FALSE-NEGATIVE RATE, THE CONSEQUENCES OF WHICH CAN BE MINIMIZED BY OBTAINING AN ANNUAL PAP SMEAR. FOOTNOTE ADDED ON 02/23/20 AT 0904 BY DISCERN END OF REPORT END OF REPORT Normal [facility] HPV (Human Papilomavirus) [facility] 09-11-2019 HPV identified Nom (Unsp spec) LAMINEALESIA ROB [id number] YRS F [id number] RM/BD ORDERING PHYSICIAN: DEREK ADAME 65 RESULT TRANSMITTED: 09/15/19 07 CYTOLOGY REPORT - THIN PREP TECHNIQUE CLINICAL HISTORY LMP: 09/02/19 HIGH RISK? NO ? NO COMMENT: [id number] HPVHR,PAP NORM HPV POS REFLEX TO 16 18 SPECIMEN SOURCE: CERVIX,ENDOCERVIX,VAG WILLIE;VIAL STATEMENT OF SPECIMEN ADEQUACY: Smear satisfactory for interpretation. Endocervical component present. DIAGNOSIS: NEGATIVE FOR INTRAEPITHELIAL LESION OR MALIGNANCY. AP :AP :AP By: JOANN lBair(ASCP) at [facility] 09/12/19 (Electronic Signature) COMMENT: The technical component was performed at [facility], [address] [place] [address]. Microscopic examination was performed. Case resulted at [facility]. THIS SPECIMEN HAS BEEN ANALYZED BY THE FlixsterPREP IMAGING SYSTEM([employer]), AN AUTOMATED IMAGING SYSTEM, WHICH ASSISTS THE LABORATORY IN EVALUATING CELLS ON THINPREP PAP TEST. FOLLOWING AUTOMATED IMAGING TO DETECT CELLS OF INTEREST, SELECTED CASPER FROM EVERY SLIDE ARE REVIEWED BY A DIRECTOR OF HOSPITALITY. IF INDICATED, THE SLIDE IS REFERRED TO A PATHOLOGIST FOR FURTHER EVALUATION. THE PAP SMEAR IS A SCREENING TEST WITH AN IRREDUCIBLE FALSE-NEGATIVE RATE, THE CONSEQUENCES OF WHICH CAN BE MINIMIZED BY OBTAINING AN ANNUAL PAP SMEAR. FOOTNOTE ADDED ON 09/12/19 AT 1039 BY DISCERN HPV HIGH RISK NEGATIVE The FDA approved Jag.ag Aptima Assay detects the fourteen high risk HPV genotypes known to cause cervical cancer and its precursor lesions (types 16,18,31,33,35,39,45, 51,52,56,58,59,66 and 68) in cervical specimens collected in ThinPrep PreservCyt Solution. The test has been approved to screen patients with ASCUS cervical cytology results to determine the need for referral to colposcopy and used adjunctively with cervical cytology results to screen women 30 years and older to assess the presence or absence of high-risk HPV types. This test was performed in [facility] at [facility]. [facility] is certified under the Clinical Laboratory Improvement Amendment (CLIA 88) to perform high complexity clinical laboratory testing. FOOTNOTE ADDED ON 09/15/19 AT 0719 BY KAYE SPECIMEN SOURCE: THINPREP END OF REPORT END OF REPORT Normal [facility] Thinprep Pap Diagnosticon Cytology report Cyto stain.thin prep Doc (Cvx/Vag) ALESIA SHIELDS ([id number] YRS F [id number] /BD ORDERING PHYSICIAN: DEREK ADAME 63 RESULT TRANSMITTED: 09/12/19 1040 CYTOLOGY REPORT - THIN PREP TECHNIQUE CLINICAL HISTORY LMP: 09/02/19 HIGH RISK? NO ? NO COMMENT: [id number] HPVHR,PAP NORM HPV POS REFLEX TO 16 18 SPECIMEN SOURCE: CERVIX,ENDOCERVIX,VAG WILLIE;VIAL STATEMENT OF SPECIMEN ADEQUACY: Smear satisfactory for interpretation. Endocervical component present. DIAGNOSIS: NEGATIVE FOR INTRAEPITHELIAL LESION OR MALIGNANCY. AP :AP :AP By: JOANN Blair(ASCP) at [facility] 09/12/19 (Electronic Signature) COMMENT: The technical component was performed at [facility], [address] [place] [address]. Microscopic examination was performed. Case resulted at [facility]. THIS SPECIMEN HAS BEEN ANALYZED BY THE THINPREP IMAGING SYSTEM([employer]), AN AUTOMATED IMAGING SYSTEM, WHICH ASSISTS THE LABORATORY IN EVALUATING CELLS ON THINPREP PAP TEST. FOLLOWING AUTOMATED IMAGING TO DETECT CELLS OF INTEREST, SELECTED CASPER FROM EVERY SLIDE ARE REVIEWED BY A DIRECTOR OF HOSPITALITY. IF INDICATED, THE SLIDE IS REFERRED TO A PATHOLOGIST FOR FURTHER EVALUATION. THE PAP SMEAR IS A SCREENING TEST WITH AN IRREDUCIBLE FALSE-NEGATIVE RATE, THE CONSEQUENCES OF WHICH CAN BE MINIMIZED BY OBTAINING AN ANNUAL PAP SMEAR. FOOTNOTE ADDED ON 09/12/19 AT 1039 BY DISCERN END OF REPORT END OF REPORT Normal [facility] Coronavirus (COVID-19/SARS-C oV-2)on 06-25-2019 SARS-CoV-2 NOTDET Normal NOTDET [facility] Comment on above: Result Comment: This test was performed via the [employer] RealTime SARS-CoV-2 assay and has been authorized by FDA under an Emergency Use Authorization (EUA). The assay is validated for nasopharyngeal (OUTSOLE CUTTER MACHINE) and oropharyngeal (OP) swabs in transport media. The limit of detection of the assay is approximately 100 copies per milliliter however, detection of SARS-CoV-2 may be affected by the sample collection and transport methods, patient factors (e.g., presence of symptoms, and/or stage of infection), and a negative result does not rule out the possibility of infection. For updated information, refer to the Center for Disease Control website: www.cdc.gov/coronavirus. Providers should also refer to the fact sheet available at the following link: http://www.[employer]/Abbott_COVID_test_fact_sheet_for_ providers.pdf Patients should also refer to the fact sheet available at the following link: http://www.[employer]/Abbott_COVID_test_fact_sheet_for_ patients.pdf Test performed at [facility], [address] , [place] [address] Ladarius Archer MD - Tower Hoist Operator Performed By: #### 9 [id number] #### [facility], [address] [facility] [address] [facility] [place], [place] US Head/Neck Soft Tissueon 0 06-12-2019 US Neck EXAMINATION TYPE: Right neck ultrasound DATE OF EXAM : 06/12/2019 10:40 AM HISTORY: Localized swelling, mass and lump, neck, right neck lump and tenderness intermittently for a couple months COMPARISON: NONE FINDINGS: Imaging of the right neck in area of clinical concern in the right submandibular region was performed. The right submandibular gland is 3.8 x 3.8 x 1 cm. Some normal-sized and appearing lymph nodes are present. No ultrasonographic abnormality identified. IMPRESSION: No ultrasonographic abnormalities are identified. If there is a persistent clinically suspicious palpable finding further evaluation with CT imaging should be considered. [facility] thanks you for the opportunity to care for your patient. Workstation ID: [id number] - [id number] FINAL REPORT Dictated By: Gordo Elena MD 06/12/2019 14:00 Assigned Physician: Gordo Elena MD Reviewed and Electronically Signed By: Gordo Elena MD 06/12/2019 14:01 Transcribed by: [facility] 06/12/2019 14:00 Technologist: CHERRIE Normal [facility] C-Reactive Proteinon 020 CRP [Mass/Vol] 0.6 mg/dL Normal <1.0 [facility] Comment on above: Performed By: #### 1 [id number] #### [facility] [address] [place] [address] Sedimentation Rate rbcon ESR (Bld) [Velocity] 1 mm/h Normal 0-20 [facility] Comment on above: Performed By: #### 3 [id number] #### [facility] SED RATE Otheron 12-11-2005 CONVERTED ELECTRONIC SIGNATURE SHAQ PICKARD M.D., PATHOLOGIST (Electronic signature on file) Final Signed Out: 12/11/2005 17:20 [facility] CONVERTED FINAL DIAGNOSIS A. RIGHT AND LEFT TURBINATES AND TONY BULLOSA, EXCISION - BENIGN SINONASAL MUCOSA WITH CHRONIC INFLAMMATION. UNREMARKABLE CARTILAGE. B. NASAL SEPTUM, EXCISION - PORTIONS OF UNREMARKABLE CARTILAGE (GROSS DIAGNOSIS). [facility] CONVERTED ORDERING PROVIDER Ordering Provider: YARA VALDOVINOS [facility] Vital Signs Date Time Vital Sign Value Performing Clinician Facility 04-20-2023 10:41-0400 Body height 162.6 cm Sunny Ballesteros MD Work Phone: [facility] 04-20-2023 10:41-0400 Body mass index (BMI) [Ratio] 24.8 kg/m2 Sunny Ballesteros MD Work Phone: [facility] 04-20-2023 10:41-0400 Body temperature 97.7 [degF] Sunny Ballesteros MD Work Phone: [facility] 04-20-2023 10:41-0400 Body weight 65.55 kg Sunny Ballesteros MD Work Phone: [facility] 04-20-2023 10:41-0400 Diastolic blood pressure 78 mm[Hg] Sunny Ballesteros MD Work Phone: [facility] 04-20-2023 10:41-0400 Heart rate 98 /min Sunny Ballesteros MD Work Phone: [facility] 04-20-2023 10:41-0400 Systolic blood pressure 122 mm[Hg] Sunny Ballesteros MD Work Phone: [facility] Encounters Encounter Date Encounter Type Care Provider Facility Start: 01-05-2025 ambulatory iFfi Aguirre [place] [facility] Start: 11-21-2024 End: 11-21-2024 ambulatory Nadeenon Froy Facility:[facility] Start: 11-18-2024 End: 11-18-2024 ambulatory Thiago Froy Facility:[facility] Start: 10-19-2024 End: 10-19-[address]~[id number] SHANNAN THOMPSON DO Facility:[facility] Start: 08-12-2024 End: 08-12-2024 ambulatory NONE NONE Facility:[facility] Start: 06-17-2024 ambulatory Sachin Sheppardcolleenko Middletoni lity:[facility] Start: 05-14-2024 End: 05-14-2024 ambulatory Sachin Alexandre Facility:[facility] Start: 05-01-2024 ambulatory Thiago Mcduffie Facility:[facility] Start: 04-29-2024 ambulatory Sachin Teran lity:[facility] Start: 03-03-2024 ambulatory Thiago Mcduffie Facility:[facility] Start: 10-28-2023 End: 10-28-2023 ambulatory NONE NONE Facility:[facility] Start: 10-22-2023 End: 10-22-2023 ambulatory Alissa Plaza APRSaritaWOOD MILLER Work Phone: [facility] Comment on above: Colon cancer screeni ng (Primary Dx); Hx of colonic polyps Start: 10-22-2023 End: 10-22-2023 Telemedicine consultation with patient Alissa Plaza APRN.[facility] Work Phone: [facility] Start: 08-20-2023 End: 08-20-2023 ambulatory [facility] Start: 05-16-2023 End: 05-17-2023 ambulatory [facility] Start: 05-16-2023 End: 05-16-2023 Subsequent hospital visit by physician Grady Gregory [address] 1 [facility] Comment on above: Neurogenic claudicat ion due to lumbar spinal stenosis Start: 04-20-2023 End: 04-21-2023 ambulatory SUNNY A [facility] Start: 04-20-2023 End: 04-20-2023 Subsequent hospital visit by physician Grady Dye X-Ray 2 [facility] Comment on above: Neurogenic claudicat ion due to lumbar spinal stenosis Start: 04-20-2023 End: 04-20-2023 Office outpatient new 45 minutes Sunny Ballesteros MD Work Phone: [facility] Comment on above: Neurogenic claudicat ion due to lumbar spinal stenosis (Primary Dx) Start: 04-20-2023 End: 04-20-2023 ambulatory [facility] Start: 05-27-2020 End: 05-27-[address] LADARIUS HE[facility] Start: 05-04-2020 End: 05-04-[address] LADARIUS HEATH [facility] Start: 12-21-2016 Ambulatory Erika Calderon Fac ility:[id number] Start: 12-08-2005 End: 12-08-2005 Patient encounter procedure Yara Valdovinos Work Phone: [facility] Start: 12-08-2005 Results Only YaraFunmilayo vincent Work Phone: [facility] Procedures Date Procedure Procedure Detail Performing Clinician Start: 08-20-2023 Follow-up visit Follow-up SUNNY BALLESTEROS Start: 05-16-2023 CT CERVICAL SPINE WO IV CONTRAST SUNNY BALLESTEROS Start: 05-16-2023 Ct cervical spine w/ o contrast material Sunny Ballesteros MD Work Phone: Start: 04-20-2023 XR EOS FULL BODY EAM THROUGH ANKLE 2 VIEWS SUNNY BALLESTEROS Start: 04-20-2023 XR LUMBAR SPINE 4+ V IEWS WITH FLEXION EXTENSION SUNNY BALLESTEROS Start: 04-20-2023 Bone length studies Deep Ballesteros MD Work Phone: Start: 02-19-2020 Microscopic observat ion [Identifier] in Cervix by Cyto stain [facility] Start: 12-15-2015 Mammography Sunny graham MD Work Phone: Start: 12-03-2014 Mammography Yara Grlorena ma Start: 12-08-2005 CONVERTED SURGICAL PATHOLOGY Yara Valdovinos Work Phone: Plan of Treatment Date Care Activity Detail Author Start: 2032 RSV patient s and/or patients aged 60+ years (1 - 1-dose 60+ series) RSV patients and/or patients aged 60+ years (1 - 1-dose 60+ series) [facility] Start: 05-19-2027 Screening for malign ant neoplasm of cervix Cervical Cancer Screening [facility] Start: 10-07-2023 Covid-19 Vaccine ( season) Covid-19 Vaccine ( season) [facility] Start: 10-07-2023 Influenza vaccination [facility] Start: 04-20-2023 End: 04-19-2024 CT Cervical spine WO contrast CT cervical spine wo IV contrast Imaging Routine Neurogenic claudication due to lumbar spinal stenosis Expected: 04/20/2023, Expires: 04/19/2024 [facility] Work Phone: Comment on above: Expected: 04/20/2023 , Expires: 04/19/2024 Start: 04-20-2023 End: 04-19-2024 XR Lumbar spine Views W flexion and W extension [facility] Service Area Work Phone: Comment on above: Expected: 04/20/2023 , Expires: 04/19/2024 Once for 1 Occurrenc es starting 04/20/2023 until 04/20/2023 Start: 02-18-2023 Screening for malign ant neoplasm of cervix [facility] Start: 11-20-2022 DTaP/Tdap/Td Vaccine s (2 - Td or Tdap) DTaP/Tdap/Td Vaccines (2 - Td or Tdap) [facility] Start: 11-20-2022 Urine microalbumin profile [facility] Start: 10-06-2022 COVID-19 Vaccine ( season) COVID-19 Vaccine ( season) [facility] Start: 10-06-2022 Influenza vaccination Influenza Vacc ine (#1) [facility] Start: 02-03-2022 Shingrix Vaccine (1 of 2) Shingrix Vaccine (1 of 2) [facility] Start: 02-03-2022 Zoster Vaccines (1 o f 2) Zoster Vaccines (1 of 2) [facility] Start: 10-07-2019 Influenza vaccination INFLUENZA (#1) [facility] Start: 11-23-2017 [facility]ABET[facility]CREEN [facility] Start: 11-23-2017 Diabetes Screening Diabetes Screenin g [facility] Start: 05-16-2017 Diabetes mellitus screening Diabetes Screening [facility] Start: 02-03-2017 Lipid panel Lipid Screening [facility] Start: 02-03-2017 LIPID SCREEN LIPID SCREEN [facility] Start: 02-03-2017 Screening for malign ant neoplasm of colon [facility] Start: 12-14-2016 Screening for malign ant neoplasm of breast Mammogram [facility] Start: 12-13-2016 Screening for malign ant neoplasm of breast Mammogram Screening [facility] Start: 12-04-2015 Mammography MAMMOGRAM [facility] Start: 10-20-2015 HPV TESTING HPV TESTING [facility] Start: 10-20-2015 PAP TESTING PAP TESTING [facility] Start: 02-23-2009 MMR Vaccines (1 of 1 - Standard series) MMR Vaccines (1 of 1 - Standard series) [facility] Start: 02-03-1993 Screening for malign ant neoplasm of cervix [facility] Start: 02-03-1991 Hepatitis B Vaccine (1 of 3 - 19+ 3-dose series) Hepatitis B Vaccine (1 of 3 - 19+ 3-dose series) [facility] Start: 02-03-1991 Hepatitis B Vaccines (1 of 3 - 19+ 3-dose series) Hepatitis B Vaccines (1 of 3 - 19+ 3-dose series) [facility] Start: 02-03-1990 Anxiety Screening Anxiety Screening [facility] Start: 02-03-1990 Depression Screening Depression Scre ening [facility] Start: 02-03-1990 Hepatitis C screening Hepatitis C Sc [facility] Start: 1972 Hepatitis B Vaccines (1 of 3 - 3-dose series) Hepatitis B Vaccines (1 of 3 - 3-dose series) [facility] Start: 1972 HIV screening HIV Screening [facility] Start: 1972 Lipid panel Lipid Panel [facility] Start: 1972 Screening for malign ant neoplasm of colon [facility] Start: 1972 Yearly Adult Physical Yearly Adult P hysical [facility] End: 10-21-2024 Screening colonoscopy COLONOSCOPY SCREENING Endoscopy Routine Colon cancer screening Hx of colonic polyps 1 Occurrences starting 10/22/2023 until 10/21/2024 [facility] Work Phone: Comment on above: 1 Occurrences starti ng 10/22/2023 until 10/21/2024 Immunizations Immunization Date Immunization Notes Care Provider Franky aguilar 12-14-2019 influenza virus vaccine, unspecified formulation Sunny Ballesteros MD Work Phone: [facility] Work Phone: 11-20-2012 influenza virus vaccine, unspecified formulation Alissa Plaza APRN.[employer] Work Phone: [facility] 11-20-2012 tetanus toxoid, redu scooby diphtheria toxoid, and acellular pertussis vaccine, adsorbed Alissa Plaza APRN.[employer] Work Phone: [facility] Payers Date Payer Category Payer Unknown [id number] 2012 Unknown [id number] 1972 Unknown [id number] 2.16.84 [id number] 1972 Unknown [id number] 2.16.84 [id number] 1972 Unknown [id number] 2.16.8 [id number] 1972 Unknown [id number] 2.16.8 [id number] 1972 Unknown [id number] 2.16.8 [id number] 1972 Unknown [id number] 2.16.8 [id number] 1972 Unknown [id number] 2.16.8 [id number] 1957 Self-pay Private Health Insurance [id number] Unknown [id number] Unknown [id number] 2.16.8 [id number] Unknown [id number] 2.16.8 [id number] Unknown [id number] 2.16.8 [id number] Unknown [id number] 2.16.8 [id number] Unknown [id number] 2.16.8 [id number] Unknown [id number] 2.16.8 [id number] Unknown [id number] 2.16.8 [id number] Unknown [id number] 2.16.8 [id number] Social History Date Type Detail Facility Tobacco smoking stat us ARIS Unknown if ever smoked [facility] Sex Assigned At Not on file [facility] Start: 10-19-2010 End: 04-20-2023 Tobacco smoking status NHIS Never smoked tobacco [facility] Work Phone: Start: 04-20-2023 Alcohol intake Current drinker of alcohol (finding) [facility] Work Phone: Start: 04-20-2023 End: 10-22-2023 History of Social function [facility] Work Phone: Start: 04-20-2023 End: 10-22-2023 Alcohol Use Disorder Identification Test - Consumption [AUDIT-C] [facility] Work Phone: How often to you hav e a drink containing alcohol? 2-3 time sa week [facility] Work Phone: How many standard dr inks containing alcohol do you have on a typical day? 1 or 2 [facility] Work Phone: How often do you hav e 6 or more drinks on 1 occasion? Never [facility] Work Phone: Start: 1970 Sex Assigned At Female [facility] Start: 05-01-2022 Gender identity Identifies as female gender (finding) [facility] Work Phone: Start: 05-01-2022 Sexual orientation Heterosexual (finding) [facility] Work Phone: Start: 04-10-2023 End: 05-16-2023 Exposure to SARS-CoV-2 (event) Not sure [facility] Start: 10-19-2010 Tobacco use and exposure Smokeless tobacco non-user [facility] Start: 05-19-2022 Alcoholic beverage intake Current non-drinker of alcohol (finding) [facility] National Score (1-10 0), lower number is lower risk 41 [facility] Clinical Note 08-14-2024 Note Date & Type Note Facility 08-14-2024 Note PROCEDURE: SHOULDER LEFT COMPLETE, 08/13/2024 8:00 AM EDT CLINICAL INDICATIONS: Left shoulder pain. COMPARISON: None TECHNIQUE: Left shoulder, 3 views. FINDINGS: Severe glenohumeral joint space narrowing, near foss-rw-ynbh abutment is seen. Marginal osteophytosis is noted. Moderate AC joint osteoarthrosis seen. Acute osseous pathology is not demonstrated. Cervical thoracic operative changes are seen. Visualized hardware intact, incompletely assessed. Gaseous distention of the stomach noted. Chest wall abnormality is not evident. Regional soft tissues normal. IMPRESSION: 1. Severe glenohumeral osteoarthrosis, near aoxn-jp-yhpr abutment. 2. AC joint osteoarthrosis. 3. No acute osseous pathology. [facility] Instructions 10-22-2023 Patient Instructions Note Date & Type Note Facility 10-22-2023 Instructions Alissa Plaza APRN.WOOD MILLER - 10/22/2023 1:13 PM EDT Images from the original note were not included. Bowel Preparation Instructions for: Miralax-Gatorade Preparations IF YOU DO NOT FOLLOW THESE DIRECTIONS, YOUR COLONOSCOPY WILL BE CANCELLED. [place] Instructions: Your bowel must be empty so that your doctor can clearly view your colon. Follow all of the instructions in this handout EXACTLY as they are written. Do NOT eat any solid food the ENTIRE day before your colonoscopy. Buy your bowel preparation at least 5 days before your colonoscopy. Four (4) Dulcolax laxative tablets containing 5mg of bisacodyl each (NOT Dulcolax stool softener) One (1) 8.3oz. bottle Miralax (238 grams) or generic equivalent 2 x 32oz. Bottles of Gatorade (NOT RED) Diabetic Patients: Use G2 (Gatorade 2) TRANSPORTATION on the Day of Your Exam A responsible adult MUST be present with you at Check In prior to your colonoscopy and REMAIN in the endoscopy area until you are discharged. You are NOT ALLOWED to drive, take a taxi or bus, or leave the Endoscopy Center ALONE. If you do not have a responsible crew truck driver (family member or friend) with you to take you home, your exam cannot be done with sedation and will be cancelled. Please bring a list of all of your current medications, including any Jzjp-grx-Adyltgq medications with you. Medications If you take insulin, diabetic medications or blood thinners such as Coumadin (warfarin), Plavix (clopidogrel), Ticlid (ticlopidine hydrochloride), Agrylin (anagrelide), Xarelto (Rivaroxaban), Pradaxa (Dabigatran), Eliquis (Apixaban), and Effient (Prasugrel). You MUST call the doctors who orders those medicines for instructions on altering the dosage before your colonoscopy. All other medications should be taken the day of the exam with a sip of water including ASPIRIN. Five (5) Days Before Your Colonoscopy Do NOT take medicines that stop diarrhea - such as Imodium, Kaopectate, or Pepto Bismol. Do NOT take fiber supplements - such as Metamucil, Citrucel, or Perdiem. Do NOT take products that contain iron - such as multi-vitamins (the label lists what is in the products). Three (3) Days Before Your Colonoscopy Do NOT eat high-fiber foods - such as popcorn, beans, seeds (flax, sunflower, quinoa), multigrain bread, nuts, salad/vegetables, or fresh and dried fruit. 1 Bowel Preparation Instructions for: Miralax-Gatorade Preparations One (1) Day Before Your Colonoscopy Only drink clear liquids the ENTIRE DAY before your colonoscopy. Do NOT eat any solid foods. Drink at least 8 ounces of clear liquids every hour after waking up. The clear liquids you can drink include: Clear Liquid (NO RED LIQUIDS) DO NOT DRINK Gatorade, Pedialyte or Powerade Clear broth or bouillon Coffee or tea (no milk or non-dairy creamer) Carbonated and non-carbonated soft drinks Brad-Aid or other fruit flavored drinks Strained fruit juices (no pulp) Jell-O, popsicles, hard candy Water Alcohol Milk or non-dairy creamers Noodles or vegetables in soup Juice with pulp Liquid you cannot see through Do not use tobacco/vaping products Mix 1/2 of Miralax bottle (119 grams) in each 32 ounces of Gatorade bottle until dissolved. Keep cool in the refrigerator. DO NOT ADD ICE. The bowel preparation solution will be consumed in two parts. Part 1 5:00 PM - Evening before your colonoscopy Take 4 Dulcolax tablets. 6 PM - Evening before your colonoscopy Drink 32 oz. of the mixed solution. Drink an 8 oz. glass of bowel preparation every 15 minutes for a total of 4 glasses. Fifteen (15) minutes later, drink an 8 oz. glass of of clear liquids every 15 minutes for a total of 2 glasses. You may continue to drink clear liquids till midnight. Part 2 On the day of your colonoscopy you may drink clear liquids up to (three) 3 hours prior to procedure. 4 1/2 hours before your colonoscopy Take another 32 oz. bottle of mixed solution. Drink an 8 oz. glass of bowel prep every 15 minutes for a total of 4 glasses. Fifteen (15) minutes later, drink an 8 oz. glass of clear liquids every 15 minutes for a total of 2 glasses. You may continue to drink clear liquids up to (three) 3 hours before your exam. 2 01/2019 documented in this encounter [facility] History of Present illness Narrative 10-22-2023 Alissa Plaza APRN.CNP - 10/22/2023 1:00 PM EDT Note Date & Type Note Facility 10-22-2023 History of Presen t illness Narrative NEW VIRTUAL VISIT I have communicated my name and active licensure. The patient's identity and physical location were verified at the time of this visit. Either the patient or their legal food service sales representatives has been informed of the risks and benefits of -- and alternatives to -- treatment through a remote evaluation and consents to proceed with the evaluation remotely. I had a virtual visit with Ms. Shields today. Her local doctors have given her a diagnosis of colonoscopy consult. Sx General she needs to get established in Gi. The last colonoscopy was 8 years ago, she has history of polyps. Pain no abdominal or rectal pain Maternal grandmother had colon cancer, dx at age 67 Weight is stable- she lost 20lbs with changes in diet, appetite is good Stressors: no hx of anxiety or depression, on effexor for pain Bloating- none Heartburn none N/V none BM daily movement, regular stools, no blood or black stools Urinary complaints none NSAIDS -uses advil for the pain, two a day, can be 4-6 Alcohol: twice a week, on Sunday or Sunday Marijuana: none Smoker - none PAST MEDICAL HISTORY No date: Back pain No date: Chronic neck pain age 15: Hepatitis A 08/2014: MRSA (methicillin resistant staph aureus) culture positive Comment: spine No date: 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 Delatorre L/S No date: D&C (INCOMPLETE AB), ANY TRIMESTER Comment: 2 for SAB 08/2014: ORTHOPEDICS SURGERY HX Comment: lumbar, diskectomy 10/23/2014: PICC LINE INSERT/CONSULT Comment: 2004: SINUS SURGERY PROC UNLISTED FAMILY HISTORY Problem Relation Age of Onset Heart Paternal Grandfather Hypertension Daughter Ischemic Heart Disease Son Diabetes Father Hypertension Father Hypertension Mother Social History Tobacco Use Smoking status: Never Smokeless tobacco: Never Substance Use Topics Alcohol use: No Drug use: No Current Outpatient Medications Medication Sig Dispense Refill venlafaxine ER (EFFEXOR XR) 37.5 mg 24 hr capsule Take 37.5 mg by mouth once daily. clindamycin (CLEOCIN) 300 mg capsule Take 1 capsule by mouth three times daily. 90 capsule 5 ciprofloxacin HCl (CIPRO) 500 mg tablet Take 1 tablet by mouth twice daily. 60 tablet 5 multivitamin tablet Take 1 tablet by mouth once daily. 0 oxyCODONE 10 mg tab PLEASE take as needed by mouth for pain only: 6 times daily for 5 days 4 times daily for 5 days 3 times daily for 5 days 2 times daily for 5 days Once daily for 5 days Then stop, OR seek advice of pain management physician or PCP if pain persists for proper pain management services. 90 tablet 0 magnesium hydroxide (MOM) 400 mg/5 mL suspension Take 30 mL by mouth twice daily as needed for Constipation. 100 mL 3 docusate sodium (COLACE) 100 mg capsule Take 1 capsule by mouth twice daily. 60 capsule 3 ondansetron (ZOFRAN, HYDROCHLORIDE,) 4 mg tablet Take 1 tablet by mouth every 8 hours as needed for Nausea/Vomiting. FOR NAUSEA 30 tablet 0 omeprazole (PRILOSEC) 20 mg capsule Take 20 mg by mouth once daily. pregabalin (LYRICA) 150 mg capsule Take 150 mg by mouth twice daily. No current facility-administered medications for this visit. ALLERGIES Allergen Reactions Contrast Dye [Iodin* Anaphylaxis Codeine Vomiting Penicillins Rash Vancomycin Rash REVIEW OF SYSTEMS: Constitutional: Negative for fever, chills, and weight loss Eyes: Negative for vision changes and double vision ENT: Negative for ear pain, nasal discharge, and sore throat Heart: Negative for chest pain Lungs: Negative for shortness of breath and cough GI: See above Musculoskeletal: advanced degenerative disc disease Neuro: Negative for numbness and tingling Skin: Negative for rashes, lesions, and jaundice Hematologic/Lymphatic: Negative for unusual bruising, bleeding, and swelling Psych: positive for anxiety PHYSICAL FINDINGS OF NOTE: Patient reported height 5'4 and weight 136 lbs General - Normal, healthy, cooperative, in no acute distress Able to interact verbally by video conference Psych - ORIENTATION: normal to time place, person and situation Mood/Affect: AFFECT AND MOOD: Normal Head/Neuro - Normal size and shape Facial appearance normal Pulmonary - respiratory effort normal Cardiovascular - patient describes extremities normal Abdominal - Not performed Skin - abnormal lesions not visualized Motor - patient seen sitting with Normal appearing strength and coordination Anorectal exam - Not Performed REVIEWED ITEMS 1. see above IMPRESSION 1. colonoscopy screening RECOMMENDATION: - colonoscopy I HAVE offered the patient an outpatient appointment for further care at [facility]. I spent more than 15 minutes toju-zs-tilh with the patient and over half the time was devoted to counseling and/or coordination of care. Alissa Plaza APRN.YENNI documented in this encounter [facility] Progress note 10-22-2023 Note Date & Type Note Facility 10-22-2023 Note HNO ID: [id number] Author: ALISSA PLAZA APRN.CNP Service: ? Author Type: Nurse Practitioner Type: Progress Notes Filed: 10/22/2023 13:19 Note Text: NEW VIRTUAL VISIT I have communicated my name and active licensure. The patient's identity and physical location were verified at the time of this visit. Either the patient or their legal food service sales representatives has been informed of the risks and benefits of -- and alternatives to -- treatment through a remote evaluation and consents to proceed with the evaluation remotely. I had a virtual visit with Ms. Shields today. Her local doctors have given her a diagnosis of colonoscopy consult. Sx General she needs to get established in Gi. The last colonoscopy was 8 years ago, she has history of polyps. Pain no abdominal or rectal pain Maternal grandmother had colon cancer, dx at age 67 Weight is stable- she lost 20lbs with changes in diet, appetite is good Stressors: no hx of anxiety or depression, on effexor for pain Bloating- none Heartburn none N/V none BM daily movement, regular stools, no blood or black stools Urinary complaints none NSAIDS -uses advil for the pain, two a day, can be 4-6 Alcohol: twice a week, on Sunday or Sunday Marijuana: none Smoker - none PAST MEDICAL HISTORY No date: Back pain No date: Chronic neck pain age 15: Hepatitis A 08/2014: MRSA (methicillin resistant staph aureus) culture positive Comment: spine No date: 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 Delatorre L/S No date: DANDC (INCOMPLETE AB), ANY TRIMESTER Comment: 2 for SAB 08/2014: ORTHOPEDICS SURGERY HX Comment: lumbar, diskectomy 10/23/2014: PICC LINE INSERT/CONSULT Comment: 2004: SINUS SURGERY PROC UNLISTED FAMILY HISTORY Problem Relation Age of Onset Heart Paternal Grandfather Hypertension Daughter Ischemic Heart Disease Son Diabetes Father Hypertension Father Hypertension Mother Social History Tobacco Use Smoking status: Never Smokeless tobacco: Never Substance Use Topics Alcohol use: No Drug use: No Current Outpatient Medications Medication Sig Dispense Refill venlafaxine ER (EFFEXOR XR) 37.5 mg 24 hr capsule Take 37.5 mg by mouth once daily. clindamycin (CLEOCIN) 300 mg capsule Take 1 capsule by mouth three times daily. 90 capsule 5 ciprofloxacin HCl (CIPRO) 500 mg tablet Take 1 tablet by mouth twice daily. 60 tablet 5 multivitamin tablet Take 1 tablet by mouth once daily. 0 oxyCODONE 10 mg tab PLEASE take as needed by mouth for pain only: 6 times daily for 5 days 4 times daily for 5 days 3 times daily for 5 days 2 times daily for 5 days Once daily for 5 days Then stop, OR seek advice of pain management physician or PCP if pain persists for proper pain management services. 90 tablet 0 magnesium hydroxide (MOM) 400 mg/5 mL suspension Take 30 mL by mouth twice daily as needed for Constipation. 100 mL 3 docusate sodium (COLACE) 100 mg capsule Take 1 capsule by mouth twice daily. 60 capsule 3 ondansetron (ZOFRAN, HYDROCHLORIDE,) 4 mg tablet Take 1 tablet by mouth every 8 hours as needed for Nausea/Vomiting. FOR NAUSEA 30 tablet 0 omeprazole (PRILOSEC) 20 mg capsule Take 20 mg by mouth once daily. pregabalin (LYRICA) 150 mg capsule Take 150 mg by mouth twice daily. No current facility-administered medications for this visit. ALLERGIES Allergen Reactions Contrast Dye [Iodin* Anaphylaxis Codeine Vomiting Penicillins Rash Vancomycin Rash REVIEW OF SYSTEMS: Constitutional: Negative for fever, chills, and weight loss Eyes: Negative for vision changes and double vision ENT: Negative for ear pain, nasal discharge, and sore throat Heart: Negative for chest pain Lungs: Negative for shortness of breath and cough GI: See above Musculoskeletal: advanced degenerative disc disease Neuro: Negative for numbness and tingling Skin: Negative for rashes, lesions, and jaundice Hematologic/Lymphatic: Negative for unusual bruising, bleeding, and swelling Psych: positive for anxiety PHYSICAL FINDINGS OF NOTE: Patient reported height 5'4 and weight 136 lbs General - Normal, healthy, cooperative, in no acute distress Able to interact verbally by video conference Psych - ORIENTATION: normal to time place, person and situation Mood/Affect: AFFECT AND MOOD: Normal Head/Neuro - Normal size and shape Facial appearance normal Pulmonary - respiratory effort normal Cardiovascular - patient describes extremities normal Abdominal - Not performed Skin - abnormal lesions not visualized Motor - patient seen sitting with Normal appearing strength and coordination Anorectal exam - Not Performed REVIEWED ITEMS 1. see above IMPRESSION 1. colonoscopy screening RECOMMENDATION: - colonoscopy I HAVE offered the patient an outpatient appointme (more content not included)... [facility] History of Present illness Narrative 04-20-2023 Sunny Ballesteros MD - 04/20/2023 10:20 AM EDT Note Date & Type Note Facility 04-20-2023 History of Present illness Narrative Images from the original note were not included. [facility] Department of Neurological Surgery New Patient Visit History of Present Illness: Alesia Shields is a 53 y.o. year old female who presents today the spine clinic to establish care with the practice. Today, she is experiencing low back pain, hip, bilateral leg, neck and shoulder pain. She describes her symptoms as clicking, stabbing, throbbing, aching, shocking, and tingling down both legs. She has a complex past medical history. In 2014, she had some neck and back pain, she was diagnosed with degenerative disk disease but took no action at the time. She got MRSA in her cervical and lumbar spine in 08/2014, that required emergency surgery in her lumbar spine for laminectomy and discectomy for osteomyelitis and epidural abscess. She moved to [place], where she went to a neurosurgeon and received a four level anterior fusion C3-C7 and an C2-T2 posterior fusion. Her postoperative course was rather uncomplicated. She was doing well from 2016 until she moved back to [place] and now she has had symptoms in the base of her neck, she has pain in her shoulder blades that intermittently go past her shoulders and into her arms. Her primary reason for visiting is her chronic back pain radiating into buttock, hips, thighs, down the back of her legs. She describes sensations of pain and getting stuck in the L1 area. She has been having difficulties with her lower back for the past year. She pain is variable, sometimes interfering with daily activities. Her pain has worsened in the last 9-12 months. She has attempted conservative care including medication, physical therapy. She has no recent pain management but had epidural steroid injections prior to the MRSA infection in 2014. Prior Spine Surgeries: Anterior cervical discectomy with anterior interbody fusion C3-C7. (05/15/2016) Posterior cervical laminectomy with fusion C3-C6, T1-T2. (05/17/2016) L4-L5 discectomy/laminectomy Physical Therapy: yes in past Diabetic: none Osteoporosis: none Patient's BMI is Body mass index is 24.8 kg/m . Review of Systems: systems reviewed and negative other than what is listed in the history of present illness There is no problem list on file for this patient. No past medical history on file. Past Surgical History: Procedure Laterality Date CHOLECYSTECTOMY 05/13/2013 Cholecystectomy Laparoscopic OTHER SURGICAL HISTORY 05/13/2013 Dental Surgery Social History Tobacco Use Smoking status: Never Smokeless tobacco: Not on file Substance Use Topics Alcohol use: Yes family history is not on file. Current Outpatient Medications: venlafaxine XR (Effexor-XR) 37.5 mg 24 hr capsule, Take 1 capsule (37.5 mg) by mouth once daily., Disp: , Rfl: Allergies Allergen Reactions Iodinated Contrast Media Anaphylaxis and Other Physical Examination General: Well developed, awake/alert/oriented x3, no distress, alert and cooperative Skin: Warm and dry, no lesions, no rashes ENMT: Mucous membranes moist, no apparent injury, no lesions seen Head/Neck: Neck Supple, no apparent injury Respiratory/Thorax: Normal breath sounds with good chest expansion, thorax symmetric Cardiovascular: No pitting edema, no JVD Motor Strength: 5/5 Throughout all extremities Muscle Bulk: Normal and symmetric in all extremities Posture: -- Cervical: Normal -- Thoracic: Normal -- Lumbar : Normal Paraspinal muscle spasm/tenderness absent. Sensation: intact to light touch Neck pain through the base of her shoulders Back pain Lumbar radiculopathy in L4-L5 distribution bilaterally, no focal deficits otherwise. Results She has no X-rays of her neck or back to review today. I personally reviewed and interpreted the imaging results which included MRI of lumbar spine: severe multilevel degenerative disk disease with grade 1 spondylolisthesis at L4/5 and L5S1 with severe foraminal stenosis L4/5 and L5S1 and bilateral facet effusions L3/L4 with moderate spinal stenosis. Assessment and Plan: Alesia Shields is a 53 y.o. year old female with a very complex past medical history with multiple spinal fusions in her neck and and a lumbar laminectomy and a history of spinal infection. At this time, I would like to get scoliosis X-rays to evaluate her global alignment. Ct X-rays for her fusions in her neck, I will order flexion/extension XR of lumbar spine, I would like her to perform physical therapy and conservative care for 6 weeks and I will see her for follow-up. We will consider surgery as a last resort if her symptoms do not improve. I counseled her on lumbar fusion in her low back as her option moving forward with a surgical plan. We will see her for follow-up after her imaging is performed. I have reviewed all prior documentation and reviewed the electronic medical record since admission. I have personally have reviewed all advanced imaging not just the reports and used my interpretation as documented as the relevant findings. I have reviewed the risks and benefits of all treatment recommendations listed in this note with the patient and family. I spent a total of 45 minutes in service to this patient's care during this date of service. Scribe Attestation By signing my name below, I, Romario Mansfielddi, Scribmarina attest that this documentation has been prepared under the direction and in the presence of Sunny Ballesteros MD. The above clinical summary has been dictated with voice recognition software. It has not been proofread for grammatical errors, typographical mistakes, or other semantic inconsistencies. Thank you for visiting our office today. It was our pleasure to take part in your healthcare. Do not hesitate to call with any questions regarding your plan of care after leaving at M-F 8am-4pm. To clinicians, thank you very much for this kind referral. It is a privilege to partner with you in the care of your patients. My office would be delighted to assist you with any further consultations or with questions regarding the plan of care outlined. Do not hesitate to call the office or contact me directly. Sincerely, Sunny Ballesteros MD, [facility] Spine [place] Administrator, [facility] [employer] Ann [employer] Chair in Spinal Neurosurgery Neurosurgery Process Improvement Engineer, [facility] Complex Spine Surgery Fellowship Director Drawing Press Operator of Neurological Surgery [facility] [id number] [facility] [place], [place] [id number] [place] [address] [address] [facility] [address] [facility] [address] [place] [address] documented in this encounter [facility] Work Phone: Evaluation note Note Date & Type Note Facility Evaluation note Diagnosis Neurogenic claudication due to lumbar spinal stenosis- Primary Spinal stenosis of lumbar region Neurogenic claudication due to lumbar spinal stenosis Spinal stenosis of lumbar region documented in this encounter [facility] Work Phone: Evaluation note Note Date & Type Note Facility Evaluation note Diagnosis Neurogenic claudication due to lumbar spinal stenosis Spinal stenosis of lumbar region documented in this encounter [facility] Work Phone: Evaluation note Note Date & Type Note Facility Evaluation note Diagnosis Neurogenic claudication due to lumbar spinal stenosis Spinal stenosis of lumbar region documented in this encounter [facility] Work Phone: Evaluation note Note Date & Type Note Facility Evaluation note Diagnosis Colon cancer screening- Primary Special screening for malignant neoplasms, colon Hx of colonic polyps Personal history of colonic polyps documented in this encounter [facility] Reason for referral (narrative) Outpatient Procedure (Routine) - New Request Note Date & Type Note Facility Reason for referral (narrati ve) Specialty Diagnoses / Procedures Referred By Contac t Referred To Contact [facility] [place] Diagnoses Colon cancer screening Hx of colonic polyps Procedures COLONOSCOPY SCREENING COLONOSCOPY FLX DX W/COLLJ SPEC WHEN Alissa Rothman APRN.CNP [address] [place] [address] [facility] Disease [facility] [place] [address] Referral ID Status Reason Start Date Expiration Date Visits Requested Visits Authorized [id number] New Request Auto-Generat ed Referral 10/22/2023 10/21/2024 1 1 [facility] Summary Purpose Family History No Family [...] Resolved Date SUPERVIS OTHER NORMAL PREG 07/04/201212/30 Reason for Referral Specialty Diagnoses / Procedures Referred By Contac t Referred To Contact Radiology Diagnoses Neurogenic claudication due to lumbar spinal stenosis Procedures CT cervical spine wo IV contrast Sunny Ballesteros MD [address] [place] [address] [address], [place] [address] Referral ID Status Reason Start Date Expiration Date Visits Requested Visits Authorized [id number] Pending Review Perform Procedure 04/20/2023 04/19/2024 1 1 Specialty Diagnoses / Procedures Referred By Contac t Referred To Contact Radiology Diagnoses Neurogenic claudication due to lumbar spinal stenosis Procedures XR lumbar spine 4+ views w flexion extension Sunny Ballesteros MD [address] [place] [address] [address], [place] [address] Referral ID Status Reason Start Date Expiration Date Visits Requested Visits Authorized [id number] Authorized Perform Procedure 04/20/2023 04/19/2024 1 1 Specialty Diagnoses / Procedures Referred By Contac t Referred To Contact Radiology Diagnoses Neurogenic claudication due to lumbar spinal stenosis Procedures XR EOS full body EAM through ankle 2 views Sunny Ballesteros MD [address] [place] [address] [address], [place] [address] Referral ID Status Reason Start Date Expiration Date Visits Requested Visits Authorized [id number] Authorized Perform Procedure 04/20/2023 04/19/2024 1 1 Referral ID Status Reason Start Date Expiration Date Visits Requested Visits Authorized [id number] Authorized Perform Procedure 04/20/2023 04/19/2024 1 1 Additional Source Comments INFORMATION SOURCE (unrecogn ized section and content) DATE CREATED AUTHOR 07/31/2017 [facility] DATE CREATED AUTHOR AUTHOR'S ORGANIZ ATION 02/24/2020 [facility] DATE CREATED AUTHOR AUTHOR'S ORGANIZ ATION 06/03/2020 [facility] DATE CREATED AUTHOR AUTHOR'S ORGANIZ ATION 05/21/2023 [facility] DATE CREATED AUTHOR AUTHOR'S ORGANIZ ATION 08/24/2023 [facility] DATE CREATED AUTHOR AUTHOR'S ORGANIZ ATION 10/23/2023 [facility] DATE CREATED AUTHOR AUTHOR'S ORGANIZ ATION 08/19/2024 [facility] DATE CREATED AUTHOR AUTHOR'S ORGANIZ ATION 10/24/2024 [facility] DATE CREATED AUTHOR AUTHOR'S ORGANIZ ATION 12/06/2024 [facility] Source Comments (unrecognize d section and content) In the event this informatio n is protected by the Federal Confidentiality of Alcohol and Drug Abuse Patient Records regulations: The Federal rules restrict any use of the information to criminally investigate or prosecute any alcohol or drug abuse patient.[facility] the event this information is protected by the Federal Confidentiality of Alcohol and Drug Abuse Patient Records regulations: The Federal rules restrict any use of the information to criminally investigate or prosecute any alcohol or drug abuse patient.[facility] Reason for Visit (unrecogniz ed section and content) Reason Comments New Patient Visit Pt here today for lo w back, hip, bilateral leg, neck and shoulder pain. She describes her symptoms as clicking, stabbing, throbbing, aching, shocking, and tingling. Specialty Diagnoses / Procedures Referred By Neel t Referred To Contact Radiology Diagnoses Neurogenic claudication due to lumbar spinal stenosis Procedures XR lumbar spine 4+ [place] [address] [facility] [address], [address] [address] Referral ID Status Reason Start Date Expiration Date Visits Requested Visits Authorized [id number] Authorized Perform Procedure 04/20/2023 04/19/2024 1 1 Specialty Diagnoses / Procedures Referred By Neel cintron Referred To Contact Radiology Diagnoses Neurogenic claudication due to lumbar spinal stenosis Procedures CT cervical [place] [address] [facility] [address], [place] [address] [place], [place] [id number] Referral ID Status Reason Start Date Expiration Date Visits Requested Visits Authorized [id number] Authorized Perform Procedure 04/20/2023 04/19/2024 1 1 Reason Comments Outpatient Colonoscopy Care Teams (unrecognized sec tion and content) [employer] Relationship Specialty Start Date End Date Adonis Martínez MD [address] [place] [address], [facility] [address] [place] [address] PCP - General 04/02/14 [employer] Relationship Specialty Start Date End Date Adonis Martínez MD [address] [place] [address], [facility] [address] [place] [address] PCP - General 04/02/14 [employer] Relationship Specialty Start Date End Date Adonis Martínez MD [address] [place] [address], [facility] 1 [place], [place] [address] PCP - General 04/02/14 FOR RECORDS PERTAINING TO PATIENTS WHO ARE [...] BE BASED ON THE PRIMARY CLINICAL RECORDS. [facility] [employer] [facility] provides no warranty or guarantee of the accuracy or completeness of information in this document.
[2025-01-09 12:08] LABS: HPV APTIMA, High Risk Negative (Negative)
== END | disposition home or self-care (01) ==
LOC: LABSPEC 15:44
PROVIDERS: PCP Family Medicine; Referring Provider Nurse Practitioner Family; Visit Provider Nurse Practitioner Family
DX: Z78.0 Asymptomatic menopausal state (principal)
CPT/HCPCS: 87624; 88175; G0145